=== PATIENT | female | born 1945 | race Caucasian/White ===

== ENCOUNTER → 2017-10-18 14:48 | Outpatient (CLI) | payer MEDICARE, OTHER, SELFPAY ==
[2017-10-18 16:58] LABS: Thyroid Stimulating Hormone 2.64 uIU/mL (0.47-4.68)
== END ==
PROVIDERS: PCP Family Medicine; Visit Provider Internal Medicine Cardiovascular Disease
DX: R00.2 Palpitations (principal); I48.0 Paroxysmal atrial fibrillation
CPT/HCPCS: 36415; 83735; 84443

== ENCOUNTER → 2017-10-25 10:49 | Outpatient (CLI) | payer MEDICARE, OTHER, SELFPAY ==
--- NOTE | 2017-10-25 | DI.MG.S_ITS ---
BILATERAL DIGITAL SCREENING MAMMOGRAM 3D/2D WITH CAD: 10/25/2017 CLINICAL: Routine screening. Comparison is made to exams dated: 04/18/2015 mammogram, 03/04/2011 mammogram, and 04/17/2009 mammogram - [facility]. There are scattered fibroglandular elements in both breasts. Current study was also evaluated with a Computer Aided Detection (CAD) system. No significant masses, calcifications, or other findings are seen in either breast. There has been no significant interval change. IMPRESSION: NEGATIVE There is no mammographic evidence of malignancy. A 1 year screening mammogram is recommended. This exam was interpreted at Station ID: [id number]. NOTE: For mammograms, a report in lay terms will be sent to the patient. Approximately 15% of breast malignancies will not be visualized mammographically. In the management of a palpable breast mass, a negative mammogram must not discourage biopsy of a clinically suspicious lesion. Electronically Signed By: Atilio navarrete/kamila:10/25/2017 12:09:41 letter sent: Normal Exam ACR BI-RADS Category 1: Negative [id number]
== END ==
PROVIDERS: PCP Family Medicine; Visit Provider Family Medicine
DX: Z12.31 Encounter for screening mammogram for malignant neoplasm of breast (principal)
CPT/HCPCS: 77063; 77067

== ENCOUNTER → 2018-01-09 14:27 | Outpatient (CLI) | payer MEDICARE, OTHER, SELFPAY | PROVIDERS: PCP Family Medicine; Visit Provider Family Medicine | DX: Z13.820 Encounter for screening for osteoporosis (principal); Z78.0 Asymptomatic menopausal state; R29.890 Loss of height; Z82.62 Family history of osteoporosis | CPT/HCPCS: 77080 ==

== ENCOUNTER → 2018-03-16 15:53 | Outpatient (CLI) | payer MEDICARE, OTHER, SELFPAY ==
--- NOTE | 2018-03-16 15:56 | DI.RAD.S_ITS ---
PROCEDURE: XR KNEE RT 3V INDICATIONS: Right knee pain and swelling. No known injury. TECHNIQUE: 3 views of the knee were acquired. COMPARISON: None. FINDINGS: Bones: No fractures or dislocations. No suspicious bony lesions. 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 Soft tissues: Moderate joint effusion. No suspicious soft tissue calcifications. IMPRESSION: 1. Mild to moderate joint disease. 2. Moderate knee joint effusion. Dictated by: Dereje King M.D. on 03/16/2018 at 16:57 Approved by: Dereje King M.D. on 03/16/2018 at 17:00
== END ==
PROVIDERS: PCP Family Medicine; Visit Provider Family Medicine
DX: M25.561 Pain in right knee (principal); M17.11 Unilateral primary osteoarthritis, right knee; M25.461 Effusion, right knee
CPT/HCPCS: 73562

== ENCOUNTER → 2018-09-04 14:19 | Outpatient (CLI) | payer MEDICARE, OTHER, SELFPAY ==
[2018-09-04 17:38] LABS: BUN Creatinine Ratio 16.3 (6-22); Blood Urea Nitrogen 13 mg/dL (7-17); Calcium 8.9 mg/dL (8.4-10.2); Carbon Dioxide 24 mmol/L (22-32); Chloride 98 mmol/L (98-107); Estimated Glomerular Filt Rate > 60.0 mL/min (>60); Glucose 84 mg/dL (80-110); HEMOLYSIS < 15 (0-50); Potassium 4.5 mmol/L (3.4-5.1); Sodium 134 mmol/L (137-145)
== END ==
PROVIDERS: Family Provider Family Medicine; PCP Family Medicine; Visit Provider Internal Medicine Cardiovascular Disease
DX: I48.0 Paroxysmal atrial fibrillation (principal)
CPT/HCPCS: 36415; 80048

== ENCOUNTER → 2018-09-21 11:17 | Outpatient (CLI) | payer MEDICARE, OTHER, SELFPAY ==
[2018-09-21 12:39] LABS: Blood Urea Nitrogen 16 mg/dL (7-17); Calcium 9.3 mg/dL (8.4-10.2); Carbon Dioxide 27 mmol/L (22-32); Chloride 95 mmol/L (98-107); Estimated Glomerular Filt Rate > 60.0 mL/min (>60); Glucose 95 mg/dL (80-110); HEMOLYSIS < 15 (0-50); Sodium 132 mmol/L (137-145)
== END ==
PROVIDERS: Family Provider Family Medicine; PCP Family Medicine; Visit Provider Internal Medicine Cardiovascular Disease
DX: I48.0 Paroxysmal atrial fibrillation (principal)
CPT/HCPCS: 36415; 80048

== ENCOUNTER → 2018-09-21 15:05 | Outpatient (CLI) | payer MEDICARE, OTHER, SELFPAY ==
--- NOTE | 2018-09-21 15:09 | DI.RAD.S_ITS ---
PROCEDURE: XR CHEST 2V INDICATIONS: wheezing TECHNIQUE: 2 views of the chest were acquired. COMPARISON: None. FINDINGS: Surgical changes and devices: None. Lungs and pleura: Low lung volumes with scattered subsegmental atelectasis/scarring. Suggestion of central airway thickening. No pleural effusions or pneumothorax. Mediastinum: Mediastinal contours are normal. Heart size is normal. Bones and chest wall: Lateral curvature of the spine and diffuse spondylosis. IMPRESSION: Low lung volumes and scattered atelectasis. No acute consolidation. Central airway thickening which raises the possibility of reactive airways disease, versus viral bronchitis Dictated by: Jaswinder Soares M.D. on 09/21/2018 at 16:10 Approved by: Jaswinder Soares M.D. on 09/21/2018 at 16:11
== END ==
PROVIDERS: Family Provider Family Medicine; PCP Family Medicine; Visit Provider Family Medicine
DX: R06.2 Wheezing (principal); I48.0 Paroxysmal atrial fibrillation
CPT/HCPCS: 36415; 71046; 80048

== ENCOUNTER → 2018-10-04 11:51 | Outpatient (CLI) | payer MEDICARE, OTHER, SELFPAY ==
[2018-10-04 12:36] LABS: BUN Creatinine Ratio 22.5 (6-22); Blood Urea Nitrogen 18 mg/dL (7-17); Calcium 9.5 mg/dL (8.4-10.2); Carbon Dioxide 28 mmol/L (22-32); Chloride 103 mmol/L (98-107); Estimated Glomerular Filt Rate > 60.0 mL/min (>60); Glucose 84 mg/dL (80-110); HEMOLYSIS < 15 (0-50); Potassium 4.5 mmol/L (3.4-5.1); Sodium 138 mmol/L (137-145)
[2018-10-05 15:47] LABS: Osmolality, Serum 292 mosm/kg (260-310)
== END ==
PROVIDERS: Family Provider Family Medicine; PCP Family Medicine; Visit Provider Internal Medicine Cardiovascular Disease
DX: E87.1 Hypo-osmolality and hyponatremia (principal)
CPT/HCPCS: 36415; 80048; 83930

== ENCOUNTER → 2018-11-01 11:50 | Outpatient (CLI) | payer MEDICARE, OTHER, SELFPAY ==
[2018-11-01 12:34] LABS: Bilirubin Urine UA NEGATIVE (NEGATIVE); Color Urine UA YELLOW; Glucose Urine UA NEGATIVE (Negative); Ketones Urine UA NEGATIVE (NEGATIVE); Leukocyte Esterase Urine UA 1+ (NEGATIVE); Nitrite Urine UA NEGATIVE (Negative); Occult Blood Urine UA 1+ (Negative); Protein Urine UA NEGATIVE (Negative); Urobilinogen Urine UA 0.2 E.U./dL (0.2); pH Urine UA 5.5 (4.5-8.0)
[2018-11-01 13:09] LABS: Appearance Urine UA Slightly Cloudy; RBC Urine 1-5/HPF (0-5/HPF)
[2018-11-01 13:10] LABS: Amorphous Sediment Urine 1+; Bacteria Urine Moderate (10-30); Culture Indicated Urine Specimen Cultured; Mucus Urine 1+ (Negative); Squamous Epithelial Cell Urine 1-5 /HPF (0-5/HPF); WBC Urine 30-100/HPF (0-5/HPF)
== END ==
PROVIDERS: Family Provider Family Medicine; PCP Family Medicine; Visit Provider Hospitalist
DX: R39.9 Unspecified symptoms and signs involving the genitourinary system (principal)
CPT/HCPCS: 81001; 87077; 87086; 87186

== ENCOUNTER 2018-12-10 17:28 | Emergency (ER) | payer MEDICARE, OTHER, SELFPAY ==
[2018-12-10 17:37] VITALS: BP 158/78; PULSE 40; RESP 20; TEMP 36.9; O2SAT 98
--- NOTE | 2018-12-10 17:37 | DI.CT.S_ITS ---
PROCEDURE: CT HEAD/BRAIN WO CON INDICATIONS: fall, hit head, + anticoags TECHNIQUE: Noncontrast 4.5 mm thick angled axial sections acquired from the foramen magnum to the vertex, with coronal and sagittal reformats. For radiation dose reduction, the following was used: automated exposure control, adjustment of mA and/or kV according to patient size. COMPARISON: None. FINDINGS: Image quality: Excellent. CSF spaces: Basal cisterns are patent. There is mild cerebral volume loss, with resultant ventricular prominence. There is a small left choroidal fissure cyst measuring up to 0.8 cm. Brain: No intracranial hemorrhage, mass, or mass effect. There are subcortical, periventricular and deep white matter hypodensities consistent with mild chronic small vessel ischemic changes. There is intracranial internal carotid artery atherosclerosis. Skull and face: Calvarium and visualized facial bones appear intact, without suspicious lesions. Sinuses: Visualized sinuses and mastoids are clear. IMPRESSION: 1. No acute intracranial abnormality. 2. Mild cerebral volume loss. 3. Small left choroidal fissure cyst. Dictated by: Nixon Rodriguez M.D. on 12/10/2018 at 18:05 Approved by: Nixon Rodriguez M.D. on 12/10/2018 at 18:07
--- NOTE | 2018-12-10 17:45 | ED.HEATRA ---
HPI - Head Injury General Chief complaint: Trauma Stated complaint: fall down stairs, hit head, and bruise left leg Time Seen by Provider: 12/10/18 17:32 Source: patient and family Mode of arrival: ambulatory Limitations: no limitations History of Present Illness HPI Narrative: Patient comes to the emergency department stating that she is here because her children wanted her to come in. She states that she was caring a vase down the stairs at [employer], when she tripped and fell and rolled down the stairs. She states that she did not lose consciousness but did hit her forehead and her bilateral lower legs while going down the stairs. She states that she was able to get up without difficulty and has not felt bad at all since the injury. He states the injury was approximately 7 hours ago. She states that she went home and took a nap, because she did not get much sleep last night and woke up feeling fine. However, she takes Eliquis, and her son and [id number], who is a nurse, were concerned that she should come in and get checked out. Patient denies any numbness or tingling. No weakness in any of her extremities. No visual changes. No headache. No dizziness. Patient states she has a bruise on each of her lower legs, but has been able to walk without difficulty or pain. She states she has a more minor bruise on her forehead. No other pain or injury anywhere else. Patient has not been ill recently. No other complaints at this time. Related Data Home Medications Medication Instructions Recorded Confirmed apixaban 5 mg tablet 5 mg PO BID #0 10/26/17 12/10/18 metoprolol succinate ER 25 mg 25 mg PO DAILY #0 10/26/17 12/10/18 tablet,extended release 24 hr flecainide 50 mg tablet 50 mg PO Q12H 06/15/18 12/10/18 triamcinolone acetonide 0.1 % 1 applictn TOP DAILY PRN 11/02/18 12/10/18 topical ointment Previous Rx's Medication Instructions Recorded escitalopram 20 mg tablet 20 mg PO QDAY #90 mg 08/08/18 albuterol sulfate HFA 90 2 puff INHALATION Q4H PRN #6.7 gram 09/21/18 mcg/actuation aerosol inhaler fluticasone propionate 50 1 spray NASAL DAILY #16 gram 11/02/18 mcg/actuation nasal spray,suspension Allergies Allergy/AdvReac Type Severity Reaction Status Date / Time procaine [From NOVOCAIN] Allergy Unknown HEART Unverified 11/02/18 10:30 RACING Review of Systems Constitutional Denies chills, Denies fever(s), Denies lethargy and Denies weakness Eyes Denies change in vision, Denies eye discharge, Denies irritation and Denies loss of vision ENT Ears, Nose, Mouth, and Throat: Denies change in voice, Denies neck pain and Denies sore throat Comments: Bruise forehead Cardiovascular Denies chest pain, Denies irregular heart rhythm, Denies lightheadedness, Denies palpitations, Denies dyspnea, Denies dyspnea on exertion and Denies orthopnea Respiratory Denies cough, Denies dyspnea, Denies dyspnea on exertion and Denies wheezing Gastrointestinal Gastrointestinal: Denies abdominal pain, Denies change in bowel habits, Denies diarrhea, Denies nausea and Denies vomiting Genitourinary Denies hematuria, Denies flank pain, Denies urinary incontinence and Denies urinary urgency Musculoskeletal Denies neck pain Comments: Bruise is bilateral lower extremity Integumentary/Breasts Denies pruritus, Denies erythema, Denies rash and Denies wounds Neurologic Denies confusion, Denies loss of vision and Denies weakness Psychiatric Denies anxiety, Denies confusion, Denies depression, Denies homicidal ideation and Denies suicidal ideation Endocrine Denies palpitations Hematologic/Lymphatic Denies easy bruising Allergic/Immunologic Denies wheezing [facility] Medical History Obstructive sleep apnea of adult (Chronic ~02/2018) Ankle pain (Chronic ~2015) Chronic back pain (Chronic) Depression (Chronic ~2010) Foot pain (Chronic ~2015) Ganglion cyst (Chronic) Hay fever (Chronic ~2015) Hearing deficit (Chronic) History of fibrocystic disease of breast (Chronic) Migraines (Chronic ~2004) Osteoporosis (Chronic ~2013) Tinnitus (Chronic ~1999) Vision disorder (Chronic) Chicken pox (Resolved ~1951) Measles (Resolved ~1949) Mumps (Resolved) Surgical History Anesthesia (Resolved) History of tonsillectomy Status post bunionectomy Family History Brother Age: 69 Heart disease Sleep apnea Father Heart disease Stroke Smoker Grandmother Heart disease Smoker Mother Heart disease Hypertension Smoker Grandfather Thrombosis Social History marital status: details: nathalia Bourgeois, lives in [place] household members: spouse lives independently: Yes caregiver/support person: No occupational status: other Smoking Status: Never smoker alcohol intake: current substance use type: does not use caffeine: No Family History Brother Age: 69 Heart disease Sleep apnea Father Heart disease Stroke Smoker Grandmother Heart disease Smoker Mother Heart disease Hypertension Smoker Grandfather Thrombosis Social History marital status: details: nathalia Bourgeois, lives in [place] household members: spouse lives independently: Yes caregiver/support person: No occupational status: other Smoking Status: Never smoker alcohol intake: current substance use type: does not use caffeine: No Exam Initial Vital Signs Initial Vital Signs: Vital Signs Temperature 98.4 F 12/10/18 17:37 Pulse Rate 40 L 12/10/18 17:37 Respiratory Rate 20 12/10/18 17:37 Blood Pressure 158/78 H 12/10/18 17:37 Pulse Oximetry 98 12/10/18 17:37 Const General: cooperative and well developed Nutritional Appearance: well nourished Orientation: alert, awake, oriented x3 and not confused [facility] Head: normocephalic and atraumatic Ears: external ears normal and TM's normal bilaterally Nose: external nose normal and No nasal discharge Face and sinus: sinuses nontender, face symmetric, no sinus tenderness and No dry mucous membranes Mouth: oral mucosae normal and moist mucous membranes Teeth and gingiva: dentition normal Throat: tonsils normal and uvula midline Eyes General: appearance normal, both eyes and all related structures Eyelids: eyelids normal Conjunctivae: conjunctivae normal Sclera: sclerae normal Pupils: PERRL EOM: EOM intact bilaterally Neck Neck: normal visual inspection, trachea midline, No lymphadenopathy, No midline deformity and No JVD Lymphatic: No lymphedema Chest Chest: normal inspection of the chest Resp Effort & Inspection: normal respiratory effort, able to speak in complete sentences, no respiratory distress and no use of accessory muscles Auscultation: clear to auscultation bilaterally, no rales, no rhonchi and no wheezes Cardio Rate: regular rate Rhythm: abnormal rhythm irregularly irregular Heart Sounds: no click, no gallops, no murmurs and no rubs Pulses: normal peripheral pulses Other: design inserter shows heart rate consistently in the 60s to 70s. GI Inspection: non-distended Palpation: soft, no hepatosplenomegaly, No guarding, No pulsatile mass and No tender Auscultation: normal bowel sounds Back/Spine/Pelvis Back: No CVA tenderness Cervical Spine: cervical ROM normal and No pain with cervical ROM Thoracic/Lumbar Spine: thoracic and lumbar spine normal to inspection Skin General: no rashes or lesions noted, No jaundice and No petechiae Neuro General: alert, oriented x3, gait normal and no focal motor deficits Speech: speech normal Extrem General: full ROM, no clubbing, cyanosis or edema, no pedal edema and no calf tenderness Psych Appearance: well kempt Mental Status: mental status grossly normal Attitude: cooperative Thought Content: normal and suicidality Judgment: judgment good Course Course Narrative: Patient was worked up with a head CT, which was found to be negative, and with an EKG, which showed sinus rhythm with first-degree AV block and frequent supraventricular premature complexes. The patient had had a brief period of low heart rate upon arrival in the emergency department, but was asymptomatic with this. Patient stated that she has had this happen from time to time since being put on metoprolol for her paroxysmal atrial fibrillation. Patient was not noted to have any further episodes of bradycardia, and I felt she was stable for discharge home. We have discussed the usual indications for return, as well as symptomatic management at home. Orders Ordered: ED Orders 12/10/18 17:37 CT head/brain wo con Stat EKG-12 Lead Stat Vital Signs - 8 hr 12/10/18 17:37 Temperature 98.4 F Pulse Rate 40 L Respiratory Rate 20 Blood Pressure 158/78 H Pulse Oximetry 98 MDM - Head Injury Medical Records Attestation: I reviewed the patient's medical records. Imaging Data CT scan - head: Radiologist's impression: PROCEDURE: CT HEAD/BRAIN WO CON INDICATIONS: fall, hit head, + anticoags TECHNIQUE: Noncontrast 4.5 mm thick angled axial sections acquired from the foramen magnum to the vertex, with coronal and sagittal reformats. For radiation dose reduction, the following was used: automated exposure control, adjustment of mA and/or kV according to patient size. COMPARISON: None. FINDINGS: Image quality: Excellent. CSF spaces: Basal cisterns are patent. There is mild cerebral volume loss, with resultant ventricular prominence. There is a small left choroidal fissure cyst measuring up to 0.8 cm. Brain: No intracranial hemorrhage, mass, or mass effect. There are subcortical, periventricular and deep white matter hypodensities consistent with mild chronic small vessel ischemic changes. There is intracranial internal carotid artery atherosclerosis. Skull and face: Calvarium and visualized facial bones appear intact, without suspicious lesions. Sinuses: Visualized sinuses and mastoids are clear. IMPRESSION: 1. No acute intracranial abnormality. 2. Mild cerebral volume loss. 3. Small left choroidal fissure cyst. Dictated by: Nixon Rodriguez M.D. on 12/10/2018 at 18:05 Approved by: Nixon Rodriguez M.D. on 12/10/2018 at 18:07 ECG Data Attestation: I personally reviewed and interpreted this ECG as follows: (See below) Interpretation: Twelve lead EKG performed December 02, 2018 at 5:39 p.m., as follows: Irregular ventricular rhythm with a rate of 63 beats per minute CA interval 224 millisecond QRS duration 89 millisecond QTC interval [address] T wave changes Ectopy noted Interpretation: Sinus rhythm with first-degree AV block with frequent supraventricular premature complexes; low QRS voltage in precordial leads; no signs of acute ischemia; abnormal EKG as interpreted by ED MD. Discharge Plan Departure Patient Disposition: Home Clinical Impression: CHI (closed head injury) Qualifiers: Encounter type: initial encounter Qualified Code(s): S09.90XA - Unspecified injury of head, initial encounter Contusion Qualifiers: Encounter type: initial encounter Contusion area: head Contusion of head detail: unspecified part of head Qualified Code(s): S00.93XA - Contusion of unspecified part of head, initial encounter Discharge Date/Time: 12/10/18 18:18 Interventions: ED Discharge Assessment Last Done: 12/10/18 18:17 Instructions: DI for Closed Head Injury Activity Restrictions/Additional Instructions: Your head CT looks good. There is no evidence of bleeding in your brain. The bruise and swelling on your lower leg will get better on its own over the next several days to a week. You may rapid and use ice and elevation to help decrease the size of the swelling. Please follow up with your primary doctor, as needed. Prescriptions: No Action albuterol sulfate 90 mcg/actuation HFA aerosol inhaler 2 puff INHALATION Q4H PRN (Reason: shortness of breath or wheezing) Qty: 6.7 RF: 1 Eliquis 5 mg Tablet 5 mg PO BID Qty: 0 RF: 0 metoprolol succinate 25 mg Tablet Extended Release 24 Hr 25 mg PO DAILY Qty: 0 RF: 0 escitalopram oxalate [Lexapro] 20 mg tablet 20 mg PO QDAY Qty: 90 RF: 2 triamcinolone acetonide 0.1 % ointment 1 applictn TOP DAILY PRN (Reason: Rash) RF: 0 fluticasone propionate [Flonase Allergy Relief] 50 mcg/actuation spray,suspension 1 spray NASAL DAILY Qty: 16 RF: 0 flecainide 50 mg tablet 50 mg PO Q12H RF: 0 Referrals: Letitia Funes DO [Primary Care Provider] -
--- NOTE | 2018-12-10 17:48 | ED_ITS ---
HPI - Head Injury General Chief complaint: Trauma Stated complaint: fall down stairs, hit head, and bruise left leg Time Seen by Provider: 12/10/18 17:32 Source: patient and family Mode of arrival: ambulatory Limitations: no limitations History of Present Illness HPI Narrative: Patient comes to the emergency department stating that she is here because her children wanted her to come in. She states that she was caring a vase down the stairs at [employer], when she tripped and fell and rolled down the stairs. She states that she did not lose consciousness but did hit her forehead and her bilateral lower legs while going down the stairs. She states that she was able to get up without difficulty and has not felt bad at all since the injury. He states the injury was approximately 7 hours ago. She states that s he went home and took a nap, because she did not get much sleep last night and woke up feeling fine. However, she takes Eliquis, and her son and [id number]-ozt, who is a nurse, were concerned that she should come in and get checked out. Patient denies any numbness or tingling. No weakness in any of her extremities. No visual changes. No headache. No dizziness. Patient states she has a bruise on each of her lower legs, but has been able to walk without difficulty or pain. She states she has a more minor bruise on her forehead. No other pain or injury anywhere else. Patient has not been ill recently. No other complaints at this time. Related Data Home Medications Medication Instructions Recorded Confirmed apixaban 5 mg tablet 5 mg PO BID #0 10/26/17 12/10/18 metoprolol succinate ER 25 mg 25 mg PO DAILY #0 10/26/17 12/10/18 tablet,extended release 24 hr flecainide 50 mg tablet 50 mg PO Q12H 06/15/18 12/10/18 triamcinolone acetonide 0.1 % 1 applictn TOP DAILY PRN 11/02/18 12/10/18 topical ointment Previous Rx's Medication Instructions Recorded escitalopram 20 mg tablet 20 mg PO QDAY #90 mg 08/08/18 albuterol sulfate HFA 90 2 puff INHALATION Q4H PRN #6.7 gram 09/21/18 mcg/actuation aerosol inhaler fluticasone propionate 50 1 spray NASAL DAILY #16 gram 11/02/18 mcg/actuation nasal spray,suspension Allergies Allergy/AdvReac Type Severity Reaction Status Date / Time procaine [From NOVOCAIN] Allergy Unknown HEART Unverified 11/02/18 10:30 RACING Review of Systems Constitutional Denies chills, Denies fever(s), Denies lethargy and Denies weakness Eyes Denies change in vision, Denies eye discharge, Denies irritation and Denies loss of vision ENT Ears, Nose, Mouth, and Throat: Denies change in voice, Denies neck pain and Denies sore throat Comments: Bruise forehead Cardiovascular Denies chest pain, Denies irregular heart rhythm, Denies lightheadedness, Denies palpitations, Denies dyspnea, Denies dyspnea on exertion and Denies orthopnea Respiratory Denies cough, Denies dyspnea, Denies dyspnea on exertion and Denies wheezing Gastrointestinal Gastrointestinal: Denies abdominal pain, Denies change in bowel habits, Denies diarrhea, Denies nausea and Denies vomiting Genitourinary Denies hematuria, Denies flank pain, Denies urinary incontinence and Denies urinary urgency Musculoskeletal Denies neck pain Comments: Bruise is bilateral lower extremity Integumentary/Breasts Denies pruritus, Denies erythema, Denies rash and Denies wounds Neurologic Denies confusion, Denies loss of vision and Denies weakness Psychiatric Denies anxiety, Denies confusion, Denies depression, Denies homicidal ideation and Denies suicidal ideation Endocrine Denies palpitations Hematologic/Lymphatic Denies easy bruising Allergic/Immunologic Denies wheezing [facility] Medical History Obstructive sleep apnea of adult (Chronic ~02/2018) Ankle pain (Chronic ~2015) Chronic back pain (Chronic) Depression (Chronic ~2010) Foot pain (Chronic ~2015) Ganglion cyst (Chronic) Hay fever (Chronic ~2015) Hearing deficit (Chronic) History of fibrocystic disease of breast (Chronic) Migraines (Chronic ~2004) Osteoporosis (Chronic ~2013) Tinnitus (Chronic ~1999) Vision disorder (Chronic) Chicken pox (Resolved ~1951) Measles (Resolved ~1949) Mumps (Resolved) Surgical History Anesthesia (Resolved) History of tonsillectomy Status post bunionectomy Family History Brother Age: 69 Heart disease Sleep apnea Father Heart disease Stroke Smoker Grandmother Heart disease Smoker Mother Heart disease Hypertension Smoker Grandfather Thrombosis Social History marital status: details: nathalia Bourgeois, lives in [place] household members: spouse lives independently: Yes caregiver/support person: No occupational status: other Smoking Status: Never smoker alcohol intake: current substance use type: does not use caffeine: No Family History Brother Age: 69 Heart disease Sleep apnea Father Heart disease Stroke Smoker Grandmother Heart disease Smoker Mother Heart disease Hypertension Smoker Grandfather Thrombosis Social History marital status: details: nathalia Bourgeois, lives in [place] household members: spouse lives independently: Yes caregiver/support person: No occupational status: other Smoking Status: Never smoker alcohol intake: current substance use type: does not use caffeine: No Exam Initial Vital Signs Initial Vital Signs: Vital Signs Temperature 98.4 F 12/10/18 17:37 Pulse Rate 40 L 12/10/18 17:37 Respiratory Rate 20 12/10/18 17:37 Blood Pressure 158/78 H 12/10/18 17:37 Pulse Oximetry 98 12/10/18 17:37 Const General: cooperative and well developed Nutritional Appearance: well nourished Orientation: alert, awake, oriented x3 and not confused [facility] Head: normocephalic and atraumatic Ears: external ears normal and TM's normal bilaterally Nose: external nose normal and No nasal discharge Face and sinus: sinuses nontender, face symmetric, no sinus tenderness and No dry mucous membranes Mouth: oral mucosae normal and moist mucous membranes Teeth and gingiva: dentition normal Throat: tonsils normal and uvula midline Eyes General: appearance normal, both eyes and all related structures Eyelids: eyelids normal Conjunctivae: conjunctivae normal Sclera: sclerae normal Pupils: PERRL EOM: EOM intact bilaterally Neck Neck: normal visual inspection, trachea midline, No lymphadenopathy, No midline deformity and No JVD Lymphatic: No lymphedema Chest Chest: normal inspection of the chest Resp Effort & Inspection: normal respiratory effort, able to speak in complete senten yamila, no respiratory distress and no use of accessory muscles Auscultation: clear to auscultation bilaterally, no rales, no rhonchi and no wheezes Cardio Rate: regular rate Rhythm: abnormal rhythm irregularly irregular Heart Sounds: no click, no gallops, no murmurs and no rubs Pulses: normal peripheral pulses Other: networking engineer shows heart rate consistently in the 60s to 70s. GI Inspection: non-distended Palpation: soft, no hepatosplenomegaly, No guarding, No pulsatile mass and No tender Auscultation: normal bowel sounds Back/Spine/Pelvis Back: No CVA tenderness Cervical Spine: cervical ROM normal and No pain with cervical ROM Thoracic/Lumbar Spine: thoracic and lumbar spine normal to inspection Skin General: no rashes or lesions noted, No jaundice and No petechiae Neuro General: alert, oriented x3, gait normal and no focal motor deficits Speech: speech normal Extrem General: full ROM, no clubbing, cyanosis or edema, no pedal edema and no calf tenderness Psych Appearance: well kempt Mental Status: mental status grossly normal Attitude: cooperative Thought Content: normal and suicidality Judgment: judgment good Course Course Narrative: Patient was worked up with a head CT, which was found to be negative, and with an EKG, which showed sinus rhythm with first-degree AV block and frequent supraventricular premature complexes. The patient had had a brief period of low heart rate upon arrival in the emergency department, but was asymptomatic with this. Patient stated that she has had this happen from time to time since being put on metoprolol for her paroxysmal atrial fibrillation. Patient was not noted to have any further episodes of bradycardia, and I felt she was stable for discharge home. We have discussed the usual indications for return, as well as symptomatic management at home. Orders Ordered: ED Orders 12/10/18 17:37 CT head/brain wo con Stat EKG-12 Lead Stat Vital Signs - 8 hr 12/10/18 17:37 Temperature 98.4 F Pulse Rate 40 L Respiratory Rate 20 Blood Pressure 158/78 H Pulse Oximetry 98 MDM - Head Injury Medical Records Attestation: I reviewed the patient's medical records. Imaging Data CT scan - head: Radiologist's impression: PROCEDURE: CT HEAD/BRAIN WO CON INDICATIONS: fall, hit head, + anticoags TECHNIQUE: Noncontrast 4.5 mm thick angled axial sections acquired from the foramen magnum to the vertex, with coronal and sagittal reformats. For radiation dose reduction, the following was used: automated exposure control, adjustment of mA and/or kV according to patient size. COMPARISON: None. FINDINGS: Image quality: Excellent. CSF spaces: Basal cisterns are patent. There is mild cerebral volume loss, with resultant ventricular prominence. There is a small left choroidal fissure cyst measuring up to 0.8 cm. Brain: No intracranial hemorrhage, mass, or mass effect. There are subcortical, periventricular and deep white matter hypodensities consistent with mild chronic small vessel ischemic changes. There is intracranial internal carotid artery atherosclerosis. Skull and face: Calvarium and visualized facial bones appear intact, without suspicious lesions. Sinuses: Visualized sinuses and mastoids are clear. IMPRESSION: 1. No acute intracranial abnormality. 2. Mild cerebral volume loss. 3. Small left choroidal fissure cyst. Dictated by: Nixon Rodriguez M.D. on 12/10/2018 at 18:05 Approved by: Nixon Rodriguez M.D. on 12/10/2018 at 18:07 ECG Data Attestation: I personally reviewed and interpreted this ECG as follows: (See below) Interpretation: Twelve lead EKG performed December 02, 2018 at 5:39 p.m., as wes arzate: Irregular ventricular rhythm with a rate of 63 beats per minute AL interval 224 millisecond QRS duration 89 millisecond QTC interval [address] T wave changes Ectopy noted Interpretation: Sinus rhythm with first-degree AV block with frequent supraventricular premature complexes; low QRS voltage in precordial leads; no signs of acute ischemia; abnormal EKG as interpreted by ED MD. Discharge Plan Departure Patient Disposition: Home Clinical Impression: CHI (closed head injury) Qualifiers: Encounter type: initial encounter Qualified Code(s): S09.90XA - Unspecified injury of head, initial encounter Contusion Qualifiers: Encounter type: initial encounter Contusion area: head Contusion of head detail: unspecified part of head Qualified Code(s): S00.93XA - Contusion of unspecified part of head, initial encounter Discharge Date/Time: 12/10/18 18:18 Interventions: ED Discharge Assessment Last Done: 12/10/18 18:17 Instructions: DI for Closed Head Injury Activity Restrictions/Additional Instructions: Your head CT looks good. There is no evidence of bleeding in your brain. The bruise and swelling on your lower leg will get better on its own over the next several days to a week. You may rapid and use ice and elevation to help decrease the size of the swelling. Please follow up with your primary doctor, as needed. Prescriptions: No Action albuterol sulfate 90 mcg/actuation HFA aerosol inhaler 2 puff INHALATION Q4H PRN (Reason: shortness of breath or wheezing) Qty: 6.7 RF: 1 Eliquis 5 mg Tablet 5 mg PO BID Qty: 0 RF: 0 metoprolol succinate 25 mg Tablet Extended Release 24 Hr 25 mg PO DAILY Qty: 0 RF: 0 escitalopram oxalate [Lexapro] 20 mg tablet 20 mg PO QDAY Qty: 90 RF: 2 triamcinolone acetonide 0.1 % ointment 1 applictn TOP DAILY PRN (Reason: Rash) RF: 0 fluticasone propionate [Flonase Allergy Relief] 50 mcg/actuation spray,suspension 1 spray NASAL DAILY Qty: 16 RF: 0 flecainide 50 mg tablet 50 mg PO Q12H RF: 0 Referrals: Letitia Funes DO [Primary Care Provider] -
[2018-12-10 18:16] VITALS: BP 113/58; PULSE 78; RESP 16; O2SAT 98
== END 2018-12-10 18:18 | disposition home or self-care (01) ==
PROVIDERS: Emergency Provider Emergency Medicine; PCP Family Medicine
DX: S09.90XA Unspecified injury of head, initial encounter (principal); S00.93XA Contusion of unspecified part of head, initial encounter; W10.8XXA Fall (on) (from) other stairs and steps, initial encounter
CPT/HCPCS: 70450; 93005; 99282; 99284

== ENCOUNTER 2018-12-16 14:37 | Emergency (ER) | payer MEDICARE, OTHER, SELFPAY ==
[2018-12-16 14:40] VITALS: BP 149/75; PULSE 71; RESP 18; TEMP 36.8; O2SAT 98
[2018-12-16 15:51] LABS: Add Manual Diff / Slide Review NO; Basophils Absolute Auto 0 /uL (0-100); Basophils Percent Auto 0.4 % (0-2); Eosinophils Absolute Auto 300 /uL (0-450); Eosinophils Percent Auto 3.5 % (2-4); Hematocrit 42.1 % (36-46); Hemoglobin 14.1 g/dL (12.0-16.0); Lymphocytes Absolute Auto 700 /uL (1100-4500); Lymphocytes Percent Auto 10.2 % (25-40); Mean Corpuscular HGB Conc 33.4 % (30-36); Mean Corpuscular Hemoglobin 31.1 PG (26-34); Mean Corpuscular Volume 92.9 fL (80-100); Monocytes Absolute Auto 600 /uL (0-900); Monocytes Percent Auto 8.7 % (3-14); Neutrophils Absolute Auto 5600 /uL (1500-7000); Neutrophils Percent Auto 77.2 % (50-75); Platelet Count 207 X10^3/uL (150-400); Red Blood Cell Count 4.53 X10^6/uL (4.0-5.2); Red Cell Distribution Width 13.4 % (11.6-14.8); White Blood Cell Count 7.2 X10^3/uL (4.5-11.0)
[2018-12-16 16:08] LABS: Alanine Aminotransferase 16 IU/L (9-52); Albumin 3.9 g/dL (3.5-5.0); Albumin Globulin Ratio 1.4 (1.0-2.8); Alkaline Phosphatase 59 U/L (38-126); Aspartate Aminotransferase 24 IU/L (14-36); BUN Creatinine Ratio 23.8 (6-22); Bilirubin Total 0.5 mg/dL (0.2-1.3); Blood Urea Nitrogen 19 mg/dL (7-17); Carbon Dioxide 27 mmol/L (22-32); Chloride 102 mmol/L (98-107); Estimated Glomerular Filt Rate > 60.0 mL/min (>60); Globulin 2.8 g/dL (1.7-4.1); Glucose 94 mg/dL (80-110); HEMOLYSIS 16 (0-50); Lactate (Lactic Acid) 1.1 mmol/L (0.7-2.1); Potassium 4.5 mmol/L (3.4-5.1); Sodium 134 mmol/L (137-145); Total Protein 6.7 g/dL (6.3-8.2)
[2018-12-16 16:48] VITALS: BP 129/82; PULSE 74; RESP 18; O2SAT 94
--- NOTE | 2018-12-16 17:41 | ED_ITS ---
HPI - Skin/Abscess/Foreign Bdy <KASSANDRA Obrien - Last Filed: 12/16/18 18:59> General Chief complaint: Skin/Abscess/Foreign Body Stated complaint: fell 6 days ago, hurt lft leg, getting worse Time Seen by Provider: 12/16/18 14:54 Source: patient Mode of arrival: ambulatory Limitations: no limitations History of Present Illness HPI narrative: The patient is a 73-year-old female nonsmoker with a chief complaint of a wound on her left lower leg. She was evaluated at the emergency department for a fall 6 days ago, and then seen by her PCP yesterday. She was started on Bactrim for possible cellulitis. She has had 3 doses. She denies any fevers nausea vomiting or diarrhea. She presents because there is increased size in the blister on her left lower leg and concern for increased redness. She states that there is some pain at the wound, which is worse when she walks, but then improved. She states she has been resting her leg and elevating. Related Data Home Medications Medication Instructions Recorded Confirmed apixaban 5 mg tablet 5 mg PO BID #0 10/26/17 12/22/18 metoprolol succinate ER 25 mg 25 mg PO DAILY #0 10/26/17 12/22/18 tablet,extended release 24 hr flecainide 50 mg tablet 50 mg PO Q12H 06/15/18 12/22/18 triamcinolone acetonide 0.1 % 1 applictn TOP DAILY PRN 11/02/18 12/22/18 topical ointment Previous Rx's Medication Instructions Recorded escitalopram 20 mg tablet 20 mg PO QDAY #90 mg 08/08/18 albuterol sulfate HFA 90 2 puff INHALATION Q4H PRN #6.7 gram 09/21/18 mcg/actuation aerosol inhaler doxycycline monohydrate 100 mg 100 mg PO BID #10 tab 12/22/18 tablet Allergies Allergy/AdvReac Type Severity Reaction Status Date / Time procaine [From NOVOCAIN] Allergy Unknown HEART Unverified 12/22/18 11:56 RACING Review of Systems <KASSANDRA Obrien - Last Filed: 12/16/18 18:59> Review of Systems GENERAL: Denies chills, fatigue, malaise, fever, sweats. HEENT: Denies sinus pain, ear pain, sore throat, difficulty swallowing, dizziness. RESPIRATORY: Denies dyspnea, cough, wheezing, hemoptysis, sputum. CARDIOVASCULAR: Denies chest pain, palpitations, orthopnea, edema, GASTROINTESTINAL: Denies nausea, vomiting, abdominal pain, diarrhea, constipation, melena. : Denies dysuria, frequency, incontinence, hematuria, urinary retention. MUSCULOSKELETAL: See HPI SKIN: See HPI NEUROLOGIC: Denies weakness, headache, numbness, change in speech, confusion, seizures, incoordination. PSYCHIATRIC: No concerning psychosocial issues. 12 point review of systems is negative except for those stated above PFSH <KASSANDRA Obrien - Last Filed: 12/16/18 18:59> Medical History Obstructive sleep apnea of adult (Chronic ~02/2018) Ankle pain (Chronic ~2015) Chronic back pain (Chronic) Depression (Chronic ~2010) Foot pain (Chronic ~2015) Ganglion cyst (Chronic) Hay fever (Chronic ~2015) Hearing deficit (Chronic) History of fibrocystic disease of breast (Chronic) Migraines (Chronic ~2004) Osteoporosis (Chronic ~2013) Tinnitus (Chronic ~1999) Vision disorder (Chronic) Chicken pox (Resolved ~1951) Measles (Resolved ~1949) Mumps (Resolved) Surgical History Anesthesia (Resolved) History of tonsillectomy Status post bunionectomy Family History Brother Age: 69 Heart disease Sleep apnea Father Heart disease Stroke Smoker Grandmother Heart disease Smoker Mother Heart disease Hypertension Smoker Grandfather Thrombosis Social History marital status: details: to Bk, lives in [place] household members: spouse lives independently: Yes caregiver/support person: No occupational status: other Smoking Status: Never smoker alcohol intake: current substance use type: does not use caffeine: No Family History Brother Age: 69 Heart disease Sleep apnea Father Heart disease Stroke Smoker Grandmother Heart disease Smoker Mother Heart disease Hypertension Smoker Grandfather Thrombosis Social History marital status: details: to Bk, lives in [place] household members: spouse lives independently: Yes caregiver/support person: No occupational status: other Smoking Status: Never smoker alcohol intake: current substance use type: does not use caffeine: No Exam <KASSANDRA Obrien - Last Filed: 12/16/18 18:59> Narrative Exam Narrative: GENERAL: Elderly female no acute distress HEAD: Atraumatic. Normocephalic. No temporal or scalp tenderness. EYES: Pupils equal round and reactive. Extraocular motions intact. No scleral icterus. No injection or drainage. ENT: Nose without bleeding, purulent drainage or septal hematoma. Throat without erythema, tonsillar hypertrophy or exudate. Uvula midline. Airway patent. NECK: Trachea midline. No JVD or lymphadenopathy. Supple, nontender, no meningeal signs. CARDIOVASCULAR: Regular rate and rhythm RESPIRATORY: No cough. No increased respiratory effort. No accessory muscle use. EXTREMITIES: Noted in skin exam. BACK: Nontender without deformity or crepitance. No flank tenderness. NEURO: AOx3. SKIN: Left lateral leg has 6 x 6 area of ecchymosis and surrounding erythema with 2 x 1 central blister. Also noted to have purple yellow and brown ecchymosis over her left foot, who around lateral ankle and medial ankle. Patient is able to ambulate well. He full range of motion noted right ankle. Positive pedal pulses. No obvious drainage. Initial Vital Signs Initial Vital Signs: Vital Signs Temperature 98.2 F 12/16/18 14:40 Pulse Rate 71 12/16/18 14:40 Respiratory Rate 18 12/16/18 14:40 Blood Pressure 149/75 H 12/16/18 14:40 Pulse Oximetry 98 12/16/18 14:40 <Edna Oshea DO - Last Filed: 12/24/18 20:31> Initial Vital Signs Initial Vital Signs: Vital Signs Temperature 98.2 F 12/16/18 14:40 Pulse Rate 71 12/16/18 14:40 Respiratory Rate 18 12/16/18 14:40 Blood Pressure 149/75 H 12/16/18 14:40 Pulse Oximetry 98 12/16/18 14:40 Course <LUCÍA Obrien-BC - Last Filed: 12/16/18 18:59> Orders Ordered: ED Orders 12/16/18 15:43 Complete Blood Count AUTO DIFF Stat Comprehensive Metabolic Panel Stat Lactate (Lactic Acid) Stat Vital Signs - 8 hr 12/16/18 14:40 12/16/18 16:48 Temperature 98.2 F Pulse Rate 71 74 Respiratory Rate 18 18 Blood Pressure 149/75 H 129/82 Pulse Oximetry 98 94 <Edna Oshea DO - Last Filed: 12/24/18 20:31> Orders Ordered: ED Orders 12/16/18 15:43 Complete Blood Count AUTO DIFF Stat Comprehensive Metabolic Panel Stat Lactate (Lactic Acid) Stat Vital Signs - 8 hr 12/16/18 14:40 12/16/18 16:48 Temperature 98.2 F Pulse Rate 71 74 Respiratory Rate 18 18 Blood Pressure 149/75 H 129/82 Pulse Oximetry 98 94 MDM - Skin/Abscess/Foreign Bdy <AYLIN Obrien - Last Filed: 12/16/18 18:59> Lab Data Result diagrams: 12/16/18 15:43 12/16/18 15:43 Lab Results 12/16/18 12/16/18 12/16/18 Range/Units 15:43 15:43 15:43 WBC 7.2 (4.5-11.0) X10^3/uL RBC 4.53 (4.0-5.2) X10^6/uL Hgb 14.1 (12.0-16.0) g/dL Hct 42.1 (36-46) % MCV 92.9 (80-100) fL MCH 31.1 (26-34) PG MCHC 33.4 (30-36) % RDW 13.4 (11.6-14.8) % Plt Count 207 (150-400) X10^3/uL Neut % (Auto) 77.2 H (50-75) % Lymph % (Auto) 10.2 L (25-40) % Appling % (Auto) 8.7 (3-14) % Eos % (Auto) 3.5 (2-4) % Baso % (Auto) 0.4 (0-2) % Neut # (Auto) 5600 (7117-7382) /uL Lymph # (Auto) 700 L (0035-8299) /uL Appling # (Auto) 600 (0-900) /uL Eos # (Auto) 300 (0-450) /uL Baso # (Auto) 0 (0-100) /uL Sodium 134 L (137-145) mmol/L Potassium 4.5 (3.4-5.1) mmol/L Chloride 102 (98-107) mmol/L Carbon Dioxide 27 (22-32) mmol/L BUN 19 H (7-17) mg/dL Creatinine 0.80 (0.52-1.04) mg/dL Estimated GFR > 60.0 (>60) mL/min BUN/Creatinine Ratio 23.8 H (6-22) Glucose 94 (80-110) mg/dL Lactate 1.1 (0.7-2.1) mmol/L Calcium 9.0 (8.4-10.2) mg/dL Total Bilirubin 0.5 (0.2-1.3) mg/dL AST 24 (14-36) IU/L ALT 16 (9-52) IU/L Alkaline Phosphatase 59 (38-126) U/L Total Protein 6.7 (6.3-8.2) g/dL Albumin 3.9 (3.5-5.0) g/dL Globulin 2.8 (1.7-4.1) g/dL Albumin/Globulin Ratio 1.4 (1.0-2.8) MDM Narrative Medical decision making narrative: The patient is a 73-year-old female who presents with a chief complaint of a wound. She has only had 3 doses of Bactrim. Her exam seems to correlate with documentation yesterday, and she does not have any signs of systemic infection on exam. We did do lab work, and she has a normal WBC and normal lactate. I discussed this case with Dr Oshea and she suggested keeping a Bactrim at this point she has not even had it for 48 hours. Discussed at length follow up with PCP. Discussed come back to ER in the meantime for any acute concerns such as fever, and we keep down fluids, extending redness etc. No questions or concerns upon discharge. <Edna Oshea, - Last Filed: 12/24/18 20:31> Lab Data Lab Results 12/16/18 12/16/18 12/16/18 Range/Units 15:43 15:43 15:43 WBC 7.2 (4.5-11.0) X10^3/uL RBC 4.53 (4.0-5.2) X10^6/uL Hgb 14.1 (12.0-16.0) g/dL Hct 42.1 (36-46) % MCV 92.9 (80-100) fL MCH 31.1 (26-34) PG MCHC 33.4 (30-36) % RDW 13.4 (11.6-14.8) % Plt Count 207 (150-400) X10^3/uL Neut % (Auto) 77.2 H (50-75) % Lymph % (Auto) 10.2 L (25-40) % Appling % (Auto) 8.7 (3-14) % Eos % (Auto) 3.5 (2-4) % Baso % (Auto) 0.4 (0-2) % Neut # (Auto) 5600 (4960-0757) /uL Lymph # (Auto) 700 L (0531-7533) /uL Appling # (Auto) 600 (0-900) /uL Eos # (Auto) 300 (0-450) /uL Baso # (Auto) 0 (0-100) /uL Sodium 134 L (137-145) mmol/L Potassium 4.5 (3.4-5.1) mmol/L Chloride 102 (98-107) mmol/L Carbon Dioxide 27 (22-32) mmol/L BUN 19 H (7-17) mg/dL Creatinine 0.80 (0.52-1.04) mg/dL Estimated GFR > 60.0 (>60) mL/min BUN/Creatinine Ratio 23.8 H (6-22) Glucose 94 (80-110) mg/dL Lactate 1.1 (0.7-2.1) mmol/L Calcium 9.0 (8.4-10.2) mg/dL Total Bilirubin 0.5 (0.2-1.3) mg/dL AST 24 (14-36) IU/L ALT 16 (9-52) IU/L Alkaline Phosphatase 59 (38-126) U/L Total Protein 6.7 (6.3-8.2) g/dL Albumin 3.9 (3.5-5.0) g/dL Globulin 2.8 (1.7-4.1) g/dL Albumin/Globulin Ratio 1.4 (1.0-2.8) Discharge Plan Departure Patient Disposition: Home Clinical Impression: Encounter for wound re-check Discharge Date/Time: 12/16/18 16:52 Interventions: ED Discharge Assessment Last Done: 12/16/18 16:48 Instructions: DI for Cellulitis -- Adult, Minor Wounds (Alternative Therapy), How To Perform RICE (Rest, Ice, Compress, Elevate) Activity Restrictions/Additional Instructions: Your lab work is very reassuring. Please continue to take the Bactrim, please follow up with PCP in the next few days. Please monitor for spreading redness, fever, vomiting or signs of systemic illness. Please come back to the emergency department for any acute concerns. Please rest. Please do not push herself. Please elevate your leg. Prescriptions: No Action albuterol sulfate 90 mcg/actuation HFA aerosol inhaler 2 puff INHALATION Q4H PRN (Reason: shortness of breath or wheezing) Qty: 6.7 RF: 1 Eliquis 5 mg Tablet 5 mg PO BID Qty: 0 RF: 0 metoprolol succinate 25 mg Tablet Extended Release 24 Hr 25 mg PO DAILY Qty: 0 RF: 0 escitalopram oxalate [Lexapro] 20 mg tablet 20 mg PO QDAY Qty: 90 RF: 2 doxycycline monohydrate 100 mg tablet 100 mg PO BID Qty: 10 RF: 0 triamcinolone acetonide 0.1 % ointment 1 applictn TOP DAILY PRN (Reason: Rash) RF: 0 flecainide 50 mg tablet 50 mg PO Q12H RF: 0 Referrals: Letitia Funes DO [Primary Care Provider] - <Edna Oshea DO - Last Filed: 12/24/18 20:31> Cosign ED Attending Fransiscaature Attestation: I was immediately available in the department for consultation. Documentation has been reviewed. I agree with assessment and plan.
== END 2018-12-16 16:52 | disposition home or self-care (01) ==
PROVIDERS: Emergency Provider Nurse Practitioner Family; PCP Family Medicine
DX: S80.822A Blister (nonthermal), left lower leg, initial encounter (principal)
CPT/HCPCS: 36415; 80053; 83605; 85025; 99282; 99283

== ENCOUNTER → 2019-04-25 11:16 | Outpatient (CLI) | payer MEDICARE, OTHER, SELFPAY ==
[2019-04-25 12:11] LABS: BUN Creatinine Ratio 18.8 (6-22); Blood Urea Nitrogen 15 mg/dL (7-17); Calcium 9.8 mg/dL (8.4-10.2); Carbon Dioxide 30 mmol/L (22-32); Chloride 102 mmol/L (98-107); Estimated Glomerular Filt Rate > 60.0 mL/min (>60); Glucose 97 mg/dL (80-110); HEMOLYSIS < 15 (0-50); Potassium 4.8 mmol/L (3.4-5.1); Sodium 140 mmol/L (137-145)
== END ==
PROVIDERS: PCP Family Medicine; Visit Provider Internal Medicine Cardiovascular Disease
DX: R00.2 Palpitations (principal); I48.0 Paroxysmal atrial fibrillation; I47.1 Supraventricular tachycardia; I48.92 Unspecified atrial flutter; G47.33 Obstructive sleep apnea (adult) (pediatric)
CPT/HCPCS: 36415; 80048

== ENCOUNTER → 2019-05-21 14:13 | Outpatient (CLI) | payer MEDICARE, OTHER, SELFPAY ==
--- NOTE | 2019-05-21 14:15 | DI.RAD.S_ITS ---
PROCEDURE: XR CHEST 2V INDICATIONS: cough TECHNIQUE: 2 views of the chest were acquired. COMPARISON: [facility], CR, XR CHEST 2V, 09/21/2018, 15:13. FINDINGS: Surgical changes and devices: None. Lungs and pleura: Lungs are clear. No pleural effusions or pneumothorax. Mediastinum: Mediastinal contours are normal. Heart size is normal. Bones and chest wall: No suspicious bony abnormalities. Soft tissues appear unremarkable. IMPRESSION: No consolidation identified. Dictated by: Lambert Bolton M.D. on 05/21/2019 at 14:28 Approved by: Lambert Bolton M.D. on 05/21/2019 at 14:32
[2019-05-21 16:11] LABS: Thyroid Stimulating Hormone 1.42 uIU/mL (0.47-4.68)
== END ==
PROVIDERS: PCP Family Medicine; Visit Provider Physician Assistant
DX: Z51.81 Encounter for therapeutic drug level monitoring (principal); R05 Cough; I48.4 Atypical atrial flutter; G47.33 Obstructive sleep apnea (adult) (pediatric); Z79.899 Other long term (current) drug therapy
CPT/HCPCS: 36415; 71046; 83735; 84443

== ENCOUNTER → 2019-10-31 08:32 | Outpatient (CLI) | payer MEDICARE, OTHER, SELFPAY ==
[2019-11-01 08:40] LABS: COVID19 Sendout Not Detected (Not Detect)
== END ==
PROVIDERS: PCP Family Medicine; Visit Provider Registered Nurse
DX: Z01.812 Encounter for preprocedural laboratory examination (principal)
CPT/HCPCS: 87635

== ENCOUNTER → 2020-01-30 14:47 | Outpatient (CLI) | payer MEDICARE, OTHER, SELFPAY ==
[2020-01-30 16:05] LABS: Appearance Urine UA CLEAR; Bilirubin Urine UA NEGATIVE (NEGATIVE); Color Urine UA YELLOW; Glucose Urine UA NEGATIVE (Negative); Ketones Urine UA NEGATIVE (NEGATIVE); Leukocyte Esterase Urine UA 1+ (NEGATIVE); Nitrite Urine UA NEGATIVE (Negative); Occult Blood Urine UA 1+ (Negative); Protein Urine UA NEGATIVE (Negative); Specific Gravity Urine UA <=1.005 (1.000-1.035); Urobilinogen Urine UA 0.2 E.U./dL (0.2)
[2020-01-30 16:11] LABS: Bacteria Urine Moderate (10-30); Culture Indicated Urine Specimen Cultured; RBC Urine 1-5/HPF (0-5/HPF); WBC Urine 10-30/HPF (0-5/HPF)
== END ==
PROVIDERS: PCP Family Medicine; Referring Provider Family Medicine; Visit Provider Family Medicine
DX: R30.0 Dysuria (principal); R35.0 Frequency of micturition; R39.15 Urgency of urination
CPT/HCPCS: 81001; 87077; 87086; 87186

== ENCOUNTER → 2020-02-04 14:28 | Outpatient (CLI) | payer MEDICARE, OTHER, SELFPAY ==
[2020-02-04 16:14] LABS: BUN Creatinine Ratio 17.4 (6-22); Blood Urea Nitrogen 15 mg/dL (7-17); Calcium 9.1 mg/dL (8.4-10.2); Carbon Dioxide 25 mmol/L (22-32); Chloride 97 mmol/L (98-107); Estimated Glomerular Filt Rate > 60.0 mL/min (>60); Glucose 107 mg/dL (80-110); HEMOLYSIS < 15 (0-50); Potassium 4.7 mmol/L (3.4-5.1); Sodium 130 mmol/L (137-145)
[2020-02-04 16:41] LABS: Thyroid Stimulating Hormone 2.13 uIU/mL (0.47-4.68)
== END ==
PROVIDERS: PCP Family Medicine; Referring Provider Internal Medicine Cardiovascular Disease; Visit Provider Internal Medicine Cardiovascular Disease
DX: I48.0 Paroxysmal atrial fibrillation (principal); Z51.81 Encounter for therapeutic drug level monitoring; Z79.899 Other long term (current) drug therapy; G47.33 Obstructive sleep apnea (adult) (pediatric); E87.1 Hypo-osmolality and hyponatremia
CPT/HCPCS: 36415; 80048; 83735; 84443

== ENCOUNTER → 2020-02-05 11:22 | Outpatient (CLI) | payer MEDICARE, OTHER, SELFPAY | PROVIDERS: PCP Family Medicine; Visit Provider Family Medicine | DX: N39.0 Urinary tract infection, site not specified (principal) | CPT/HCPCS: 87086 ==

== ENCOUNTER → 2020-02-07 12:05 | Outpatient (CLI) | payer MEDICARE, OTHER, SELFPAY ==
[2020-02-07 12:58] LABS: BUN Creatinine Ratio 23.3 (6-22); Blood Urea Nitrogen 17 mg/dL (7-17); Calcium 9.6 mg/dL (8.4-10.2); Carbon Dioxide 27 mmol/L (22-32); Chloride 101 mmol/L (98-107); Estimated Glomerular Filt Rate > 60.0 mL/min (>60); Glucose 94 mg/dL (80-110); HEMOLYSIS < 15 (0-50); Potassium 4.9 mmol/L (3.4-5.1); Sodium 135 mmol/L (137-145)
[2020-02-07 15:15] LABS: Sodium Urine Random 32 mmol/L (30-90)
[2020-02-08 16:08] LABS: Osmolality Urine 603 mOsmol/kg (.); Osmolality, Serum 282 mOsmol/kg (280-301)
== END ==
PROVIDERS: PCP Family Medicine; Referring Provider Internal Medicine Cardiovascular Disease; Visit Provider Internal Medicine Cardiovascular Disease
DX: E87.1 Hypo-osmolality and hyponatremia (principal)
CPT/HCPCS: 36415; 80048; 83930; 83935; 84300

== ENCOUNTER → 2020-02-13 12:12 | Outpatient (CLI) | payer MEDICARE, OTHER, SELFPAY ==
--- NOTE | 2020-02-13 | DI.US.S_ITS ---
PROCEDURE: US PERIPH VENOUS LOW EXTREM LT INDICATIONS: EDEMA TECHNIQUE: Real-time imaging, as well as color and pulse Doppler interrogation, were performed of the lower extremity deep veins from the inguinal ligament to the popliteal fossa. COMPARISON: None. FINDINGS: The common femoral, femoral and popliteal veins are normally compressible, and free of intraluminal thrombus. Color and pulse Doppler demonstrate normal phasic intraluminal flow. There is normal augmentation response to distal compression maneuver. IMPRESSION: Negative for deep venous thrombosis. Dictated by: Herrera Willis M.D. on 02/13/2020 at 12:43 Approved by: Hererra Willis M.D. on 02/13/2020 at 12:43
== END ==
PROVIDERS: PCP Family Medicine; Referring Provider Family Medicine; Visit Provider Internal Medicine Cardiovascular Disease
DX: R60.0 Localized edema (principal)
CPT/HCPCS: 93971

== ENCOUNTER → 2020-02-26 09:34 | Outpatient (CLI) | payer MEDICARE, OTHER, SELFPAY ==
[2020-02-27 00:50] LABS: COVID19 Sendout Not Detected (Not Detect)
== END ==
PROVIDERS: PCP Family Medicine; Visit Provider Physician Assistant
DX: Z11.59 Encounter for screening for other viral diseases (principal)
CPT/HCPCS: 87635

== ENCOUNTER → 2020-03-26 12:29 | Outpatient (CLI) | payer MEDICARE, OTHER, SELFPAY | PROVIDERS: PCP Family Medicine; Visit Provider Family Medicine | DX: N39.0 Urinary tract infection, site not specified (principal) | CPT/HCPCS: 87077; 87086; 87186 ==

== ENCOUNTER → 2020-04-02 15:08 | Outpatient (CLI) | payer MEDICARE, OTHER, SELFPAY ==
[2020-04-02 15:37] LABS: Bacteria Urine None Seen
[2020-04-02 16:13] LABS: Appearance Urine UA CLEAR; Bilirubin Urine UA NEGATIVE (NEGATIVE); Color Urine UA YELLOW; Glucose Urine UA NEGATIVE (Negative); Ketones Urine UA NEGATIVE (NEGATIVE); Leukocyte Esterase Urine UA 1+ (NEGATIVE); Nitrite Urine UA NEGATIVE (Negative); Occult Blood Urine UA 1+ (Negative); Protein Urine UA NEGATIVE (Negative); Specific Gravity Urine UA <=1.005 (1.000-1.035); Urobilinogen Urine UA 0.2 E.U./dL (0.2)
[2020-04-02 16:19] LABS: RBC Urine 1-5/HPF (0-5/HPF); WBC Urine 1-5/HPF (0-5/HPF)
[2020-04-02 16:20] LABS: Culture Indicated Urine Specimen Cultured
== END ==
PROVIDERS: PCP Family Medicine; Referring Provider Family Medicine; Visit Provider Family Medicine
DX: N39.0 Urinary tract infection, site not specified (principal)
CPT/HCPCS: 81001; 87077; 87086; 87186

== ENCOUNTER → 2020-11-27 15:32 | Outpatient (CLI) | payer MEDICARE, OTHER, SELFPAY ==
[2020-11-27 16:01] LABS: Appearance Urine UA CLEAR; Bilirubin Urine UA NEGATIVE (NEGATIVE); Color Urine UA YELLOW; Glucose Urine UA NEGATIVE (Negative); Ketones Urine UA NEGATIVE (NEGATIVE); Leukocyte Esterase Urine UA 1+ (NEGATIVE); Nitrite Urine UA NEGATIVE (Negative); Occult Blood Urine UA 1+ (Negative); Protein Urine UA NEGATIVE (Negative); Specific Gravity Urine UA <=1.005 (1.000-1.035); Urobilinogen Urine UA 0.2 E.U./dL (0.2)
[2020-11-27 16:02] LABS: pH Urine UA 6.5 (4.5-8.0)
[2020-11-27 16:32] LABS: RBC Urine 1-5/HPF (0-5/HPF)
[2020-11-27 16:33] LABS: Amorphous Sediment Urine 1+; Bacteria Urine Few (2-10); Culture Indicated Urine Specimen Cultured; Squamous Epithelial Cell Urine 0-1 /HPF (0-5/HPF); WBC Urine 5-10/HPF (0-5/HPF)
== END ==
PROVIDERS: PCP Family Medicine; Referring Provider Family Medicine; Visit Provider Family Medicine
DX: R30.0 Dysuria (principal); R35.0 Frequency of micturition; R82.90 Unspecified abnormal findings in urine
CPT/HCPCS: 81001; 87077; 87086; 87186

== ENCOUNTER → 2021-02-02 09:31 | Outpatient (CLI) | payer MEDICARE, OTHER, SELFPAY ==
[2021-02-02 12:50] LABS: BUN Creatinine Ratio 21.7 (6-22); Blood Urea Nitrogen 15 mg/dL (7-17); Calcium 9.1 mg/dL (8.4-10.2); Carbon Dioxide 32 mmol/L (22-32); Chloride 102 mmol/L (98-107); Estimated Glomerular Filt Rate > 60.0 mL/min (>60); Glucose 91 mg/dL (80-110); HEMOLYSIS < 15 (0-50); Potassium 4.3 mmol/L (3.4-5.1); Sodium 137 mmol/L (137-145)
== END ==
PROVIDERS: PCP Family Medicine; Referring Provider Internal Medicine Cardiovascular Disease; Visit Provider Internal Medicine Cardiovascular Disease
DX: I48.0 Paroxysmal atrial fibrillation (principal)
CPT/HCPCS: 36415; 80048

== ENCOUNTER → 2021-02-19 10:45 | Outpatient (CLI) | payer MEDICARE, OTHER, SELFPAY ==
--- NOTE | 2021-02-19 10:48 | DI.RAD.S_ITS ---
PROCEDURE: XR DEXA AXIAL SKELETON INDICATIONS: postmenopausal COMPARISON: [facility], CR, XR DEXA AXIAL SKELETON, 01/09/2018, 15:07. FINDINGS: This blank DEXA report has been sent in error by the PACS system. The correct and complete report will be forthcoming in 1-2 days. Thank you for your patience and understanding. Dictated by: Sienna Lan MD, PhD on 02/19/2021 at 17:16 Approved by: Sienna Lan MD, PhD on 02/19/2021 at 17:16
== END ==
PROVIDERS: PCP Family Medicine; Referring Provider Family Medicine; Visit Provider Family Medicine
DX: Z78.0 Asymptomatic menopausal state (principal); Z82.62 Family history of osteoporosis
CPT/HCPCS: 77080

== ENCOUNTER → 2022-01-30 11:56 | Outpatient (CLI) | payer MEDICARE, OTHER, SELFPAY ==
[2022-01-30 13:08] LABS: Add Manual Diff / Slide Review NO; Basophils Absolute Auto 0 /uL (0-100); Basophils Percent Auto 0.5 % (0-2); Eosinophils Absolute Auto 200 /uL (0-450); Eosinophils Percent Auto 3.1 % (2-4); Hematocrit 42.8 % (36-46); Hemoglobin 14.6 g/dL (12.0-16.0); Lymphocytes Absolute Auto 1400 /uL (1100-4500); Lymphocytes Percent Auto 24.7 % (25-40); Mean Corpuscular HGB Conc 34.2 % (30-36); Mean Corpuscular Hemoglobin 31.5 PG (26-34); Mean Corpuscular Volume 92.1 fL (80-100); Monocytes Absolute Auto 600 /uL (0-900); Monocytes Percent Auto 9.9 % (3-14); Neutrophils Absolute Auto 3500 /uL (1500-7000); Neutrophils Percent Auto 61.8 % (50-75); Platelet Count 198 X10^3/uL (150-400); Red Blood Cell Count 4.64 X10^6/uL (4.0-5.2); Red Cell Distribution Width 13.1 % (11.6-14.8); White Blood Cell Count 5.7 X10^3/uL (4.5-11.0)
[2022-01-30 13:29] LABS: Alanine Aminotransferase 16 IU/L (<35); Albumin 3.8 g/dL (3.5-5.0); Albumin Globulin Ratio 1.4 (1.0-2.8); Alkaline Phosphatase 57 U/L (38-126); Aspartate Aminotransferase 19 IU/L (14-36); BUN Creatinine Ratio 23.3 (6-22); Bilirubin Total 0.4 mg/dL (0.2-1.3); Blood Urea Nitrogen 17 mg/dL (7-17); Calcium 9.2 mg/dL (8.4-10.2); Carbon Dioxide 28 mmol/L (22-32); Chloride 102 mmol/L (98-107); Estimated Glomerular Filt Rate > 60 mL/min (>60); Globulin 2.7 g/dL (1.7-4.1); Glucose 78 mg/dL (80-110); HEMOLYSIS < 15 (0-50); Potassium 4.6 mmol/L (3.4-5.1); Sodium 139 mmol/L (137-145); Total Protein 6.5 g/dL (6.3-8.2)
== END ==
PROVIDERS: PCP Family Medicine; Referring Provider Family Medicine; Visit Provider Family Medicine
DX: E66.9 Obesity, unspecified (principal); I48.0 Paroxysmal atrial fibrillation
CPT/HCPCS: 36415; 80053; 85025

== ENCOUNTER → 2022-02-04 08:41 | Outpatient (CLI) | payer MEDICARE, OTHER, SELFPAY ==
--- NOTE | 2022-02-04 08:42 | DI.US.S_ITS ---
PROCEDURE: US ABDOMEN COMPLETE INDICATIONS: f/u findings on CT, possible liver cirrhosis on CT. TECHNIQUE: Real-time scanning was performed of the abdominal and retroperitoneal organs, with image documentation. Color Doppler was also utilized. COMPARISON: [facility], CT, CT ANGIO CHEST, 10/15/2021, 9:39. FINDINGS: Liver: The liver demonstrates normal size and normal overall echotexture. No masses or abnormal liver vascularity can be seen. Likely simple appearing cysts can be seen on the left that measure up to 1.6 and up to 0.7 cm. These demonstrate no abnormal vascularity. Gallbladder: No findings of gallstones or sludge are seen. The gallbladder wall is not thickened, measuring 3 mm or less. No specific pericholecystic fluid is seen. The sonographic Crane sign is negative. Biliary ducts: Intrahepatic bile ducts are non-dilated. Extrahepatic bile duct caliber measures 6 mm. Normal is 6-7 mm or less in diameter, or 10 mm or less post-cholecystectomy. Pancreas: Visualized portions of the pancreas are sonographically normal. Spleen: Spleen is normal in size and homogeneous in echotexture. Kidneys: Kidneys are normal in size and echotexture. Right kidney measures 10.2 cm long; left kidney measures 10 cm long. No hydronephrosis or nephrolithiasis. No solid masses. Aorta: Visualized aorta is normal in caliber at less than 3 cm. Iliacs: Proximal common iliac arteries are normal in caliber at less than 2.5 cm. IVC: Intrahepatic inferior vena cava is patent. Miscellaneous: No free abdominal fluid. IMPRESSION: Normal appearing liver, without findings cirrhosis by ultrasound. Incidental note is made of: Simple appearing liver cysts Dictated by: Herrera Willis M.D. on 02/04/2022 at 12:59 Approved by: Herrera Willis M.D. on 02/04/2022 at 13:01
== END ==
PROVIDERS: PCP Family Medicine; Referring Provider Family Medicine; Visit Provider Family Medicine
DX: R93.2 Abnormal findings on diagnostic imaging of liver and biliary tract (principal)
CPT/HCPCS: 76700

== ENCOUNTER → 2022-04-20 12:07 | Outpatient (CLI) | payer MEDICARE, OTHER, SELFPAY ==
[2022-04-20 12:49] LABS: COVID19 -Nasal RAPID Negative (Negative)
--- NOTE | 2022-04-21 14:11 | DI.NM.S_ITS ---
DATE OF SERVICE: April 20, 2022 PROCEDURE PERFORMED: Exercise treadmill stress and rest myocardial perfusion imaging with gating to assess ejection fraction and regional wall motion. ORDERING PROVIDER: Yazan Proctor MD INDICATIONS: The patient is a 76-year-old female with paroxysmal atrial fibrillation status post ablation with recurrent atrial fibrillation and exertional dyspnea. CARDIAC STRESS: The patient was able to exercise for 5 minutes, 52 seconds on a standard Abdoul protocol suggesting good exercise capacity with an BREANNA of -15%. Her resting ECG shows a sinus rhythm at 63 bpm with occasional PACs, but she converts to atrial fibrillation in the second minute of exercise with variable heart rates up to 145 bpm (101% of her predicted maximum). She had a normal blood pressure response. She had no chest pain or other anginal symptoms. Her resting ECG shows normal ST segments and there are no significant ST-segment shifts to suggest ischemia. At 4 minutes 30 seconds of exercise at a heart rate of 128 bpm, 25.6 millicuries of technetium-99m Myoview was injected and she was imaged 10 minutes later using a gated SPECT acquisition protocol. The day prior while at rest, she had been injected with 27.3 millicuries of technetium-99m Myoview was imaged 20 minutes later, again using a gated acquisition SPECT protocol. FINDINGS: RAW DATA: There is fair myocardial tracer uptake but with obvious moderate breast shadows noted across the anterior portion of the left ventricle. The lung/heart ratio is normal at 0.28 with a normal TID ratio of 0.77. QUANTITATED GATED SPECT: Post-stress ejection fraction is estimated at 72% without any focal wall motion abnormality. Resting ejection fraction is 75% with a normal end-diastolic volume of 105 mL. Tracer uptake of the right ventricular freewall is mildly increased which can be an indication of a right ventricular stress condition. MYOCARDIAL PERFUSION SCAN: The post-stress supine images show a moderate perfusion defect in the mid to distal anterior wall and anterior septum extending to but not including the apex in a pattern that would be consistent with breast attenuation artifact, supported by its complete resolution on the prone images which show a normal perfusion pattern. The resting images show a similar perfusion pattern as to the post-stress supine images, although with slight improvement in the anteroseptal defect. IMPRESSION: 1. Probable normal myocardial perfusion study. 2. Predominantly fixed, but slightly reversible defect in the mid to distal anterior wall and anterior septum that completely resolves on the prone images, consistent with breast attenuation artifact. While a previous nontransmural infarction with mild cheryl-infarct ischemia cannot be entirely excluded, the absence of any other indicators of ischemia or wall motion abnormality mitigate against this. 3. Normal left ventricular systolic function without any focal wall motion abnormality and normal left ventricular volumes. There is mild evidence for a possible right ventricular stress condition. 4. Good exercise capacity without angina or ECG evidence of ischemia. Her resting ECG shows sinus rhythm at 63 bpm but she develops a moderately rapid atrial fibrillation early in exercise that persists throughout the remainder of the study into recovery but she was relatively asymptomatic. Pricila Vinson - AURELIANO/adithya/cs doc#: [id number]/job#: [id number] dd: 04/21/2022 13:10:00 dt: 04/21/2022 13:44:00 DICTATING MD/COPIES TO: Evans Barajas MD; Yazan Proctor MD COPIES MNE: ZANE;
== END ==
PROVIDERS: Specialist; PCP Family Medicine; Referring Provider Internal Medicine Cardiovascular Disease; Visit Provider Internal Medicine Cardiovascular Disease
DX: I48.0 Paroxysmal atrial fibrillation (principal); R06.00 Dyspnea, unspecified; Z20.822 Contact with and (suspected) exposure to COVID-19
CPT/HCPCS: 78452; 87635; 93017; A9502

== ENCOUNTER → 2022-07-22 10:17 | Outpatient (CLI) | payer MEDICARE, SELFPAY ==
[2022-07-22 13:40] LABS: Appearance Urine UA CLOUDY; Bilirubin Urine UA NEGATIVE (NEGATIVE); Color Urine UA YELLOW; Glucose Urine UA NEGATIVE (Negative); Ketones Urine UA NEGATIVE (NEGATIVE); Leukocyte Esterase Urine UA TRACE (NEGATIVE); Nitrite Urine UA NEGATIVE (Negative); Occult Blood Urine UA 1+ (Negative); Protein Urine UA NEGATIVE (Negative); Urobilinogen Urine UA 0.2 E.U./dL (0.2)
[2022-07-22 14:13] LABS: Amorphous Sediment Urine 3+; Bacteria Urine Many (>30); RBC Urine 1-5/HPF (0-5/HPF); WBC Urine 5-10/HPF (0-5/HPF)
[2022-07-22 14:14] LABS: Culture Indicated Urine Specimen Cultured
== END ==
PROVIDERS: PCP Family Medicine; Visit Provider Family Medicine
DX: R30.0 Dysuria (principal)
CPT/HCPCS: 81001; 87077; 87086; 87186

== ENCOUNTER → 2022-12-08 10:34 | Outpatient (CLI) | payer MEDICARE, SELFPAY ==
--- NOTE | 2022-12-08 10:36 | DI.RAD.S_ITS ---
PROCEDURE: XR KNEE RT 3V INDICATIONS: Right knee pain TECHNIQUE: 3 views of the knee were acquired. COMPARISON: [facility], , XR KNEE RT 3V, 03/16/2018, 15:33. FINDINGS: Bones: No fractures or dislocations. No suspicious bony lesions. Moderate-severe patellofemoral compartment joint space narrowing, spurring, subchondral cystic change. Mild medial lateral compartment degenerative changes also present. Soft tissues: No joint effusion. IMPRESSION: No acute osseous abnormality. Degenerative changes of the knee are present. If symptoms persist, follow-up radiographs and/or CT or MRI may be helpful for further evaluation. Dictated by: Gopi Shepard M.D. on 12/08/2022 at 13:14 Approved by: Gopi Shepard M.D. on 12/08/2022 at 13:16
[2022-12-08 14:55] LABS: Alanine Aminotransferase 21 IU/L (<35); Albumin Globulin Ratio 1.5 (1.0-2.8); Alkaline Phosphatase 63 U/L (38-126); Aspartate Aminotransferase 23 IU/L (14-36); BUN Creatinine Ratio 28.8 (6-22); Bilirubin Total 0.4 mg/dL (0.2-1.3); Blood Urea Nitrogen 19 mg/dL (7-17); Calcium 9.2 mg/dL (8.4-10.2); Carbon Dioxide 28 mmol/L (22-32); Chloride 99 mmol/L (98-107); Estimated Glomerular Filt Rate > 60 mL/min (>60); Globulin 2.6 g/dL (1.7-4.1); Glucose 79 mg/dL (80-110); HEMOLYSIS < 15 (0-50); Potassium 4.7 mmol/L (3.4-5.1); Sodium 135 mmol/L (137-145); Total Protein 6.6 g/dL (6.3-8.2)
[2022-12-08 15:28] LABS: Thyroid Stimulating Hormone 2.42 uIU/mL (0.47-4.68)
== END ==
PROVIDERS: Internal Medicine Cardiovascular Disease; PCP Family Medicine; Referring Provider Nurse Practitioner Family; Visit Provider Nurse Practitioner Family
DX: I48.0 Paroxysmal atrial fibrillation (principal); M25.561 Pain in right knee
CPT/HCPCS: 36415; 73562; 80053; 84443

== ENCOUNTER 2022-12-14 12:10 | Emergency (ER) | payer MEDICARE, SELFPAY ==
[2022-12-14 12:38] VITALS: BP 147/73; PULSE 56; RESP 18; TEMP 36.1; O2SAT 98; BMI 37.0
--- NOTE | 2022-12-14 13:14 | ED_ITS ---
HPI - Extremity Problem <Beatrice Harley PA-C - Last Filed: 12/14/22 14:46> General Chief complaint: Extremity Problem,Nontraumatic Stated complaint: right knee pain hard to bend t-7 Time Seen by Provider: 12/14/22 13:07 Source: patient Mode of arrival: Family Vehicle History of Present Illness HPI Narrative: 77-year-old female presents with concern for persistent right knee pain. Patient states that in late mid October she was more active than usual in prep for people coming to visit around the 16 of November. She does not remember any specific injuries other than being more active than usual and noticed that she was having right knee pain. She states she pretty much ignored it other than taking some Tylenol while she had people visiting in early November. In the last few weeks it is become more persistent it is painful with bending and painful with standing and walking. She feels pain in the back of her knee? like there is something there? at times. She has noticed some swelling in her feet and ankles bilaterally but states it has not been worse or different than usual for her. She has not had pain in her calf but describes pain in her knee in general. She was seen in the walk-in clinic last week and had x-rays done but is having persistent pain. She denies any other complaints or concerns including chest pain, shortness of breath or any other symptoms. Related Data Home Medications Medication Instructions Recorded Confirmed apixaban 5 mg tablet (Eliquis) 5 mg PO BID ##0 10/26/17 12/08/22 Resmed Aircurve 10 BIPAP #1 ea 12/25/18 12/08/22 flecainide 50 mg tablet 100 mg PO Q12H 11/19/21 12/08/22 metoprolol succinate 25 mg 25 mg PO BID #0 tabs 11/19/21 12/08/22 tablet,extended release 24 hr Previous Rx's Medication Instructions Recorded Portable Oxygen Concentrator #1 ea 07/21/21 betamethasone dipropionate 0.05 % See Rx Instructions .Route 06/18/22 topical ointment .COMPLEX #15 grams sertraline 100 mg tablet 150 mg PO DAILY 90 days #135 tabs 10/05/22 tramadol 50 mg tablet 50 mg PO BID PRN pain 3 days #10 12/14/22 tabs Allergies Allergy/AdvReac Type Severity Reaction Status Date / Time trimethoprim Allergy Severe hives, Verified 12/14/22 12:42 headache, nausea procaine [From NOVOCAIN] Allergy Unknown HEART Verified 12/14/22 12:42 RACING Sulfa (Sulfonamide Allergy hives, Verified 12/14/22 12:42 Antibiotics) nausea, headache Review of Systems <Beatrice Harley PA-C - Last Filed: 12/14/22 14:46> Review of Systems Narrative: See HPI Patient History <Beatrice Harley PA-C - Last Filed: 12/14/22 14:46> Medical History Ankle pain (~2015) Chicken pox (~1951) Chronic back pain COVID-19 Depression (~2010) Foot pain (~2015) Ganglion cyst Hay fever (~2015) Hearing deficit History of fibrocystic disease of breast Lichen sclerosus Measles (~1949) Migraines (~2004) Mumps Obstructive sleep apnea of adult (~02/2018) Osteoporosis (~2013) Tinnitus (~1999) Vision disorder Surgical History Anesthesia H/O cardiac radiofrequency ablation (~10/20/21) History of tonsillectomy Status post bunionectomy Family History Brother Age: 73 Heart disease Sleep apnea Father Heart disease Stroke Smoker Grandmother Heart disease Smoker Mother Heart disease Hypertension Smoker Grandfather Thrombosis Social History marital status: details: nathalia Bourgeois, lives in [place] household members: spouse lives independently: Yes caregiver/support person: No occupational status: other Smoking Status: Never smoker alcohol intake: current substance use type: does not use caffeine: No Smoking Status: Never smoker alcohol intake frequency: 0-2 drinks per day Substance Use Type: does not use Exam <Beatrice Harley PA-C - Last Filed: 12/14/22 14:46> Narrative Exam Narrative: GENERAL: [77] year old patient appears stated age. Well-developed patient, in mi ld distress, ambulates with a hiking poll. HEAD: Atraumatic. Normocephalic. EYES: Pupils equal round and reactive. Extraocular motions intact. No scleral icterus. No injection or drainage. ENT: Nose without bleeding, purulent drainage. Airway patent. NECK: Trachea midline. Non tender CARDIOVASCULAR: Regular rate and rhythm without murmurs, gallops, or rubs. RESPIRATORY: Clear to auscultation. Breath sounds equal bilaterally. No wheezes, rales, or rhonchi. EXTREMITIES: There is some tenderness with palpation over the medial and lateral right knee as well as posterior knee/popliteal fossa, there is no appreciable erythema or heat present, calf is slightly tender proximally just inferior to the popliteal fossa but otherwise nontender and appears equal in size bilaterally. Pedal pulses intact bilaterally. Patient has intact range of motion at the knee and ankle but increased pain with flexion at the knee both active and passive. No edema or joint tenderness. NEURO: AOx3. SKIN: No rash or erythema of visible areas Initial Vital Signs Initial Vital Signs: Vital Signs Temperature 97 F L 12/14/22 12:38 Pulse Rate 56 L 12/14/22 12:38 Respiratory Rate 18 12/14/22 12:38 Blood Pressure 147/73 H 12/14/22 12:38 Pulse Oximetry 98 12/14/22 12:38 Oxygen Delivery Method Room Air 12/14/22 12:38 <Tristian Caldera MD - Last Filed: 12/15/22 08:30> Initial Vital Signs Initial Vital Signs: Vital Signs Temperature 97 F L 12/14/22 12:38 Pulse Rate 56 L 12/14/22 12:38 Respiratory Rate 18 12/14/22 12:38 Blood Pressure 147/73 H 12/14/22 12:38 Pulse Oximetry 98 12/14/22 12:38 Oxygen Delivery Method Room Air 12/14/22 12:38 Course <Beatrice Harley PA-C - Last Filed: 12/14/22 14:46> Orders Ordered: ED Orders 12/14/22 13:30 perip venous low extrem rt Stat Vital Signs Vital signs: Vital Signs - 8 hr 12/14/22 12:38 Temperature 97 F L Pulse Rate 56 L Respiratory Rate 18 Blood Pressure 147/73 H Pulse Oximetry 98 Oxygen Delivery Method Room Air <Tristian Caldera MD - Last Filed: 12/15/22 08:30> Orders Ordered: ED Orders 12/14/22 13:30 US periph venous low extrem rt Stat Vital Signs Vital signs: Vital Signs - 8 hr 12/14/22 12:38 Temperature 97 F L Pulse Rate 56 L Respiratory Rate 18 Blood Pressure 147/73 H Pulse Oximetry 98 Oxygen Delivery Method Room Air MDM - Extremity (Nontraumatic) <Beatrice Harley PA-C - Last Filed: 12/14/22 14:46> Imaging Data Extremity x-ray #1: My Impression: Agree with Radiology interpretation Radiologist's Impression: XRAY from 12/08/[address] [address] XRay Report Signed Patient: Pricila Vinson MR#: [id number] : 1945 Acct:[id number] Age/Sex: 77 / F Date of Service: 12/08/22 Loc: RAD Accession Number: [id number] ?? Procedure: XR knee RT 3V Ordering Provider: Rahel Baez PROCEDURE:? XR KNEE RT 3V ? INDICATIONS:? Right knee pain ? TECHNIQUE:? 3 views of the knee were acquired.? ? COMPARISON:? [facility], , XR KNEE RT 3V, 03/16/2018, 15:33. ? FINDINGS:? ? Bones:? No fractures or dislocations.? No suspicious bony lesions.? Moderate- severe patellofemoral compartment joint space narrowing, spurring, subchondral cystic change.? Mild medial lateral compartment degenerative changes also present. ? Soft tissues:? No joint effusion.? ? IMPRESSION:? No acute osseous abnormality.? Degenerative changes of the knee are present. ?If symptoms persist, follow-up radiographs and/or CT or MRI may be helpful for further evaluation. ? ? Dictated by: Gopi Shepard M.D. on 12/08/2022 at 13:14 ? ? Approved by: Gopi Shepard M.D. on 12/08/2022 at 13:16?? US - DVT: My Impression: Agree with Radiology interpretation Radiologist's Impression: [address] [address] Ultrasound Report Signed Patient: Pricila Vinson MR#: [id number] : 1945 Acct:[id number] Age/Sex: 77 / F Date of Service: 12/14/22 Loc: ED Accession Number: [id number] ?? Procedure: US periph venous low extrem rt Ordering Provider: Beatrice Harley P.A-C PROCEDURE:? US PERIPH VENOUS LOW EXTREM RT ? INDICATIONS:? RIGHT KNEE PAIN ? TECHNIQUE:? Real-time imaging, as well as color and pulse Doppler interrogation, were performed of the lower extremity deep veins from the inguinal ligament to the popliteal fossa.? ? COMPARISON:? None. ? FINDINGS:? The common femoral, femoral and popliteal veins are normally compressible, and free of intraluminal thrombus.? Color and pulse Doppler demonstrate normal phasic intraluminal flow.? There is normal augmentation response to distal compression maneuver. ? ? A 4.1 x 4.9 x 1.2 cm nonvascular Coe's cyst can be seen. ? ? IMPRESSION:? ? Negative for deep venous thrombosis. ? ? Dictated by: Herrera Willis M.D. on 12/14/2022 at 13:26 ? ? Approved by: Herrera Willis M.D. on 12/14/2022 at 13:27?? MDM Narrative Medical decision making narrative: This is a 77-year-old woman with history of obesity, paroxysmal atrial fibrillation GILDA who presents with concern for persistent knee pain. Pain has been present since mid October worsened in November and worsened even more in the last 2 weeks, she was seen at the walk-in clinic and had x-rays done which were notable for some bone spurring as well as significant compression of the space between her femur and tibia. Based on exam and history today some concern for Coe cyst and ultrasound is ordered for both DVT and eval of possible Coe cyst. This returns negative for DVT and positive for approximately 5 cm coe cyst of the affected right knee. Counseled the patient that she may benefit from seeing Orthopedics possibly having a steroid injection, she has a physical therapy appointment today and will discuss this with her physical therapist as well, she is encouraged to follow up closely with her primary care provider, given information for orthopedic provider, and a short prescription for tramadol she is encouraged to take Tylenol for pain and do activity as tolerated. Return precautions provided, follow-up plan discussed, all questions answered. Discharge Plan Departure Patient Disposition: Home Clinical Impression: Coe's cyst of knee, Acute knee pain, Degenerative arthritis Activity Restrictions/Additional Instructions: *You have been diagnosed with [Coe cyst] *What to do: *Please continue to take your regular medications as directed. [ ] New medication prescriptions sent to your pharmacy: [ ] [ ] New medication written as a paper prescription [1 ] No new medications given *Please follow up with your primary care provider in 2-3 days, call for an appointment. Let them know you were seen in the Emergency Department and that we ask that you be seen in follow up. We will electronically transmit a record of today's note if your PCP is in our system. We did an ultrasound of your right knee and leg today to further evaluate and was not very suspicious for DVT but we did evaluate for this and did not find evidence of this, I was suspicious for a Coe cyst and this was seen on your imaging today. It is about 5 cm. And likely explains that your pain behind her knee and your pain with walking and bending her knee. These can be helped with an intra-articular steroid injection, I recommend you see orthopedics for this, you can also talk to her physical therapist today about the presence of this problem. I did prescribe a short course of tramadol medication although I recommend you take Tylenol in general he can try the tramadol as well. I have included information below for a current on-call orthopedic surgeon however you can see any orthopedic provider of your choice you can also talk to her primary care provider about who he should see although I recommend he get in as soon as possible. Please try do ng their office. *If you do not have a primary care provider please contact the [facility] Resource line at [phone]. They will ask some questions about your medical history and help get you set up with a doctor in the community. *Return to Emergency Department if you should have any new, worsening or concerning symptoms, such as [fever greater than 101 F, shaking chills, worsening pain, persistent vomiting or other bothersome symptoms] Prescriptions: New tramadol 50 mg tablet 50 mg PO BID PRN (Reason: pain) 3 Days Qty: 10 0RF No Action Eliquis 5 mg Tablet 5 mg PO BID Qty: 0 (DME) Portable Oxygen Concentrator See Rx Instructions .Route .MEDSUPPLY Qty: 1 0RF Rx Instructions: 08/12/21-09/12/21 1L at HS flecainide 50 mg tablet 100 mg PO Q12H metoprolol succinate 25 mg tablet extended release 24 hr 25 mg PO BID Qty: 0 betamethasone dipropionate 0.05 % ointment See Rx Instructions .ROUTE .COMPLEX Qty: 15 0RF Dose Instruction: APPLY TOPICALLY TO THE AFFECTED AREA AT BEDTIME Rx Instructions: APPLY TOPICALLY TO THE AFFECTED AREA AT BEDTIME sertraline 100 mg tablet 150 mg PO DAILY 90 Days Qty: 135 3RF (DME) Resmed Aircurve 10 BIPAP Qty: 1 Dose Instruction: As directed Patient Comments: Pressure: IPAP 10 EPAP 6 DME: [employer] Rx Instructions: As directed Referrals: Inderjit Horta MD [Physician] - Jemima Morrell DO [Primary Care Provider] - Stand Alone Forms: Patient Portal/API <Tristian Caldera MD - Last Filed: 12/15/22 08:30> Cosign ED Attending Cosleilaature Attestation: I was immediately available in the department for consultation. ?This documentation has been reviewed and I agree with assessment and plan. Supervised by Tristian Caldera MD
--- NOTE | 2022-12-14 13:30 | DI.US.S_ITS ---
PROCEDURE: US PERIPH VENOUS LOW EXTREM RT INDICATIONS: RIGHT KNEE PAIN TECHNIQUE: Real-time imaging, as well as color and pulse Doppler interrogation, were performed of the lower extremity deep veins from the inguinal ligament to the popliteal fossa. COMPARISON: None. FINDINGS: The common femoral, femoral and popliteal veins are normally compressible, and free of intraluminal thrombus. Color and pulse Doppler demonstrate normal phasic intraluminal flow. There is normal augmentation response to distal compression maneuver. A 4.1 x 4.9 x 1.2 cm nonvascular Coe's cyst can be seen. IMPRESSION: Negative for deep venous thrombosis. Dictated by: Herrera Willis M.D. on 12/14/2022 at 13:26 Approved by: Herrera Willis M.D. on 12/14/2022 at 13:27
== END 2022-12-14 14:41 | disposition home or self-care (01) ==
PROVIDERS: Emergency Provider Student in an Organized Health Care Education/Training Program; PCP Family Medicine
DX: M71.21 Synovial cyst of popliteal space [Baker], right knee (principal); M25.561 Pain in right knee; M17.11 Unilateral primary osteoarthritis, right knee; Z79.01 Long term (current) use of anticoagulants; Z79.899 Other long term (current) drug therapy
CPT/HCPCS: 93971; 99283

== ENCOUNTER → 2023-02-10 13:13 | Outpatient (CLI) | payer MEDICARE, SELFPAY ==
--- NOTE | 2023-02-10 13:14 | DI.MRI.S_ITS ---
PROCEDURE: MR KNEE RT WO CON INDICATIONS: Right knee pain TECHNIQUE: Noncontrast sagittal PD fast spin echo and T2 fast spin echo with fat saturation, sagittal 3-D FLASH with fat saturation; coronal T1 spin echo and PD fast spin echo with fat saturation, and axial PD fast spin echo with fat saturation through the knee. COMPARISON: [facility], CR, XR KNEE RT 3V, 12/08/2022, 10:37. FINDINGS: Image quality: Excellent. Menisci: Medial extrusion of the medial meniscus. Radial tearing of the posterior horn medial meniscus at the meniscal root ligament insertion site. Linear oblique high T2 signal intensity traverses the inner, middle, and peripheral thirds of the medial meniscal body and posterior horn. Lateral meniscus is intact. Cruciate ligaments: The anterior and posterior cruciate ligaments appear intact. Medial structures: The medial collateral ligament appears intact, and demonstrates mild surrounding T2 signal elevation. Visualized portions of the pes anserinus tendons appear normal. No abnormal bursal fluid. Lateral structures: The lateral collateral ligament demonstrates mild T2 signal elevation at the femoral origin. The long and short heads of the biceps femoris tendon appear intact. The popliteus tendon appears normal. Iliotibial band appears normal. Anterior structures: The quadriceps and patellar tendons appear intact. Patellar alignment is normal. No femoral trochlear dysplasia or ventral trochlear prominence. No edema in the infrapatellar fat pad. Moderate prepatellar subcutaneous fluid and fat stranding. Bones and cartilage: No bone marrow contusions or fractures. Moderate subchondral degenerative marrow edema within the medial tibial plateau. Moderate tricompartmental periarticular osteophyte formation. Severe articular cartilage loss diffusely overlies the weight-bearing aspects of the medial femoral condyle and medial tibial plateau. Severe articular cartilage loss overlies the lateral patellar facet and lateral femoral trochlea. Joint space: There is a small knee joint effusion and a large Coe's cyst. Normal appearing synovial plicae are incidentally noted. IMPRESSION: 1. Tricompartmental osteoarthritis with associated articular cartilage loss. 2. Medial meniscal tearing. 3. Medial collateral ligament strain. 4. Low-grade partial thickness lateral collateral ligament tear. 5. Prepatellar bursitis. 6. Knee joint effusion and Coe's cyst. Dictated by: Reginaldo Jerez M.D. on 02/10/2023 at 14:30 Approved by: Reginaldo Jerez M.D. on 02/10/2023 at 14:32
== END ==
PROVIDERS: PCP Family Medicine; Referring Provider Family Medicine; Visit Provider Family Medicine
DX: S83.241A Other tear of medial meniscus, current injury, right knee, initial encounter (principal); S83.411A Sprain of medial collateral ligament of right knee, initial encounter; S83.421A Sprain of lateral collateral ligament of right knee, initial encounter; M17.11 Unilateral primary osteoarthritis, right knee; M70.41 Prepatellar bursitis, right knee; M25.461 Effusion, right knee; M25.561 Pain in right knee
CPT/HCPCS: 73721

== ENCOUNTER → 2023-06-21 11:34 | Outpatient (CLI) | payer MEDICARE, SELFPAY ==
[2023-06-21 12:57] LABS: Add Manual Diff / Slide Review NO; Basophils Absolute Auto 0 /uL (0-100); Basophils Percent Auto 0.4 % (0-2); Eosinophils Absolute Auto 200 /uL (0-450); Eosinophils Percent Auto 3.4 % (2-4); Hematocrit 43.8 % (36-46); Hemoglobin 14.9 g/dL (12.0-16.0); Lymphocytes Absolute Auto 900 /uL (1100-4500); Lymphocytes Percent Auto 19.1 % (25-40); Mean Corpuscular Hemoglobin 31.4 PG (26-34); Mean Corpuscular Volume 92.2 fL (80-100); Monocytes Absolute Auto 300 /uL (0-900); Monocytes Percent Auto 7.5 % (3-14); Neutrophils Absolute Auto 3200 /uL (1500-7000); Neutrophils Percent Auto 69.6 % (50-75); Platelet Count 223 X10^3/uL (150-400); Red Blood Cell Count 4.75 X10^6/uL (4.0-5.2); Red Cell Distribution Width 13.5 % (11.6-14.8); White Blood Cell Count 4.7 X10^3/uL (4.5-11.0)
[2023-06-21 13:23] LABS: BUN Creatinine Ratio 27.3 (6-22); Blood Urea Nitrogen 18 mg/dL (7-17); Calcium 9.7 mg/dL (8.4-10.2); Carbon Dioxide 26 mmol/L (22-32); Chloride 105 mmol/L (98-107); Estimated Glomerular Filt Rate > 60 mL/min (>60); Glucose 111 mg/dL (80-110); HEMOLYSIS < 15 (0-50); Sodium 136 mmol/L (137-145); Uric Acid 3.6 mg/dL (2.5-6.2)
[2023-06-21 13:29] LABS: Hemoglobin A1C% w Est Avg Glu 5.5 % (4.0-6.0)
[2023-06-21 13:38] LABS: Bilirubin Urine UA NEGATIVE (NEGATIVE); Color Urine UA YELLOW; Glucose Urine UA NEGATIVE (Negative); Ketones Urine UA NEGATIVE (NEGATIVE); Leukocyte Esterase Urine UA 1+ (NEGATIVE); Nitrite Urine UA POSITIVE (Negative); Occult Blood Urine UA TRACE-INTACT (Negative); Protein Urine UA NEGATIVE (Negative); Urobilinogen Urine UA 0.2 E.U./dL (0.2)
[2023-06-21 13:42] LABS: Appearance Urine UA CLOUDY; pH Urine UA 5.5 (4.5-8.0)
[2023-06-21 14:48] LABS: Urine Volume Low Vol <10mL unspun
[2023-06-21 14:49] LABS: Bacteria Urine Moderate (10-30); Culture Indicated Urine Specimen Cultured; RBC Urine 0-1/HPF (0-5/HPF); Squamous Epithelial Cell Urine None Seen (0-5/HPF); WBC Urine 5-10/HPF (0-5/HPF)
== END ==
PROVIDERS: PCP Family Medicine; Referring Provider Family Medicine; Visit Provider Family Medicine
DX: Z01.818 Encounter for other preprocedural examination (principal)
CPT/HCPCS: 36415; 80048; 81001; 83036; 84550; 85025; 87077; 87086; 87186

== ENCOUNTER → 2023-08-05 14:05 | Outpatient (CLI) | payer MEDICARE, SELFPAY | PROVIDERS: PCP Family Medicine; Referring Provider Family Medicine; Visit Provider Family Medicine | DX: Z01.818 Encounter for other preprocedural examination (principal) | CPT/HCPCS: 93005 ==

== ENCOUNTER 2023-08-18 06:23 | Day surgery (SDC) | payer MEDICARE, SELFPAY ==
[2023-08-04 08:46] VITALS: BMI 38.5
[2023-08-18] VITALS (14 sets, daily range): BP systolic 108–145; BP diastolic 61–80; PULSE 58–71; RESP 10–20; TEMP 36.1–36.5; O2SAT 90–97; BMI 38.5
--- NOTE | 2023-08-18 06:59 | DI.RAD.S_ITS ---
PROCEDURE: XR KNEE RT 1TO2V INDICATIONS: TKA TECHNIQUE: 2 view(s) of the knee acquired. COMPARISON: [facility], , XR KNEE RT 3V, 12/08/2022, 10:37. FINDINGS: Bones: Patient is status post knee joint arthroplasty. Hardware components are in expected positions. Visualized bony structures are intact. Soft tissues: Overlying postoperative changes are noted. IMPRESSION: Expected immediate postoperative appearance, status post total right knee arthroplasty. Dictated by: Mirza Tejeda M.D. on 08/18/2023 at 11:05 Approved by: Mirza Tejeda M.D. on 08/18/2023 at 11:05
--- NOTE | 2023-08-18 07:11 | PM.PREOP ---
Pre-operative Note Interval Note History & Physical reviewed/Exam performed by Physician: Yes Changes to H&P: No
[2023-08-18] MEDS: VANCOMYCIN 1,000 MG/200 ML PIGGYBACK 200 MG IV (07:12)
[2023-08-18] MEDS: LACTATED RINGERS 1,000 ML 42 ML IV ×2 (07:12→09:52)
--- NOTE | 2023-08-18 07:12 | P.OP_ITS ---
Operative Date/Time/Diagnoses Date of procedure: 08/18/23 Time of procedure: 08:00 Pre-op diagnosis: right knee OA Post-op diagnosis: same Procedure & Clinicians Procedure: right total knee arthroplasty Same procedure as scheduled: Yes Indications: The patient has had progressively worsening right knee pain with radiographic changes consistent with arthritis. Non-operative management has failed and the patient has requested total knee replacement. The risks, benefits and alternatives to surgery were discussed with the patient prior to proceeding. Risks discussed included, but were not limited to, failure to relieve pain, stiffness, infection, nerve damage, deep venous thrombosis, pulmonary embolism, stroke, coma, heart attack, permanent paralysis and , as well as the potential need for eventual revision of the prosthetic. Surgeon: Jessica Zavala Battery Service Technician: Eric Aguilar Click Yes if Unassisted: Yes Anesthesia Type: General and Spinal Operative Notes Findings: Severe right knee OA Closure Type: primary Specimen(s): none sent Prosthetic devices, grafts, tissues, transplants, or devices: Zavala and nephew adrianney BCS 2 size 3 femur, size 3 tibia, +9 poly, 32 x 7.5 mm patella Estimated Blood Loss (mL): 250 Blood products transfused: none Tourniquet time (min): 95 Procedure in detail: The patient was seen in the pre-operative area, where the patient identified the right knee as the operative site and this was marked with my initials. The patient received pre-operative antibiotics, and was taken to the operating room and placed on the operative table in the supine position. After satisfactory anesthesia, a observer electrical prospecting out was performed. The right leg was encircled with a tourniquet about the proximal thigh, and the leg was prepared from the toes to the tourniquet with ChloroPrep in the usual fashion and draped through sterile drapes. The leg was elevated and exsanguinated with Eschmark bandage and the tourniquet inflated to [250] mmHg pressure. A PA was used during the procedure and was essential for intraoperative retraction and safe implantation of the components. The knee was approached through an approximately 18 cm incision centered over the patella and carried into the knee through a medial parapatellar arthrotomy. Portion of the medial and lateral meniscus was resected. Soft tissue was carefully mobilized around the patella the patella was measured with a caliper. Bone was resected from the patella and the patellar height was reconstituted with up an appropriate sized patellar component. A cover was then placed on the patella. A small amount of additional medial and lateral meniscus was resected. Cori pins were placed in the femur. A tibial guide was pinned to the tibia and the robotic trackers were attached. The knee was meticulously navigated and mapped. We placed it through range of motion and did stressed and unstressed range of motion. The Cori robotic bur was used to resect the distal femur. It looked like an appropriate distal femoral cut and the cut was made without difficulty. The rotation was assessed and the appropriate size femoral guide was placed on the distal femur and finishing cuts were made. There was no evidence of notching. The anterior, posterior and chamfer cuts were then made. The posterior osteophytes and soft tissues were then removed. The posterior capsule was injected with part of a mixture of 60 ml 0.25% Marcaine mixed with 20 ml Exparel for post operative pain control. The remainder of this mixture was injected into the capsule and subcutaneous tissues during cement curing. The guide was meticulously navigated on the tibia. The tibia was then resected with a saw. The tibia was prepared. The rotation was assessed. The patient was placed in extension residual medial and lateral meniscus as well as any residual bone was carefully resected. [No] additional tibia was resected. Hemostasis was achieved especially posteriorly. Additional local was injected into the posterior capsule. The femoral component was trial was placed and the notch was finished. Trial tibial and femoral components were then placed and the knee placed through a range of motion. Range of motion was [0-130], with good stability throughout the range. The trials were then removed, and the tibia was finished. The bone was prepared with pulsatile lavage, and dried with a sponge. Cement was applied and the final prosthetics placed. Excess cement was removed during and after cement curing. A brief Betadine soak was performed. After confirming there was no extruded cement posteriorly, the final tibial insert was placed. The knee was copiously irrigated and the tourniquet deflated. Hemostasis was obtained with the bovie cautery. The capsule was closed with interrupted vicryl suture. The subcutaneous layer was closed with barbed sutures, and the skin with a running 3-0 V-Lock suture and Surgical glue. An Aquacel Ag dressing was applied and the patient was taken to recovery having tolerated the procedure well. Complications: none Post-operative Condition: stable Disposition: Acute Care Plan for aftercare: The patient will be maintained on a standard total knee replacement protocol with weight bearing as tolerated. The patient will receive aspirin and sequential compression devices for DVT prophylaxis. The patient will be discharged home when safe for the home environment.
[2023-08-18] MEDS: CELECOXIB 200 MG CAPSULE PO (07:13)
[2023-08-18] MEDS: ACETAMINOPHEN 325 MG TABLET 975 MG PO (07:13)
[2023-08-18] MEDS: TRANEXAMIC ACID 1,000 MG VIAL 1000 MG INJ ×2 (08:14→10:02)
[2023-08-18] MEDS: CEFAZOLIN 2 GM/100 ML PREMIX 100 ML IV ×2 (08:15→16:35)
--- NOTE | 2023-08-18 08:33 | SUR.OPER ---
Supine on padded OR bed. Pillow under head, arms secured on padded armboards <90 degree abduction. Safety belt across torso. Non-operative leg secured with tape over blanket over lower leg. Operative leg secured in Jasson positioner. Foam padded brace at thigh of operative leg.
[2023-08-18] MEDS: BUPIVACAINE 0.25% (PF) 60 ML, EPINEPHrine 0.3 MG INJ (08:42)
[2023-08-18] MEDS: BUPIVACAINE LIPOSOME 266 MG/20 ML VIAL INJ (08:43)
--- NOTE | 2023-08-18 11:16 | SUR.PHASEI ---
Report called to Juan
--- NOTE | 2023-08-18 11:19 | SUR.PHASEI ---
Transferred to the floor by Kyle with walker and 2 belongings bags.
[2023-08-18] MEDS: LACTATED RINGERS 1,000 ML 100 ML IV (11:48)
[2023-08-18] MEDS: ACETAMINOPHEN 325 MG TABLET 650 MG PO ×3 (11:48→23:05)
[2023-08-18] MEDS: OXYCODONE IR 5 MG TABLET PO ×3 (12:20→23:06)
--- NOTE | 2023-08-18 15:42 | PT.IIE ---
Current Diagnoses Unilateral primary osteoarthritis, right knee (08/18/23) Surgery Performed Operation Date: 08/18/23 07:45 Actual Procedures p Total Knee Arthroplasty - Robot(Right) - Jessica Zavala MD Surgical History (Last Updated 08/04/23 @ 09:18 by Digna Florentino, RN) Anesthesia H/O cardiac radiofrequency ablation (~10/20/21) History of tonsillectomy Hx of bilateral cataract extraction Hx of thumb surgery (~2013) Status post bunionectomy Medical History (Last Updated 08/04/23 @ 09:24 by Digna Florentino RN) Ankle pain (~2015) Anxiety Arthritis Chicken pox (~1951) Chronic back pain COVID-19 (~02/2023) Depression (~2010) Easy bruisability Foot pain (~2015) Ganglion cyst Hay fever (~2015) Hearing deficit Hearing impaired History of fibrocystic disease of breast Lichen sclerosus Measles (~1949) Migraines (~2004) Mumps Obstructive sleep apnea of adult (~02/2018) Osteoporosis (~2013) PAF (paroxysmal atrial fibrillation) Tinnitus (~1999) Uses self-applied continuous glucose monitoring device Vision disorder Physical Therapy Inpatient Evaluation/Re-Eval M1 PT/OT-IP Prior Functional Status Start: 08/18/23 12:39 Freq: NEEDED Status: Active Protocol: Document 08/18/23 15:27 MB (Rec: 08/18/23 15:41 MB [id number]) Medical Review Prior Functional Status Medical History Reviewed Yes Diet/Fluid Consistency Regular Communication WNLs Mobility and Gait I Activities of Daily Living and IADL's I, drove Social History Household Members spouse Living Arrangements House Number of Floors (Floors) One Floor Number of Stairs To Enter/Railing? No steps to enter Home Environment Standard Height Toilet,Walk in Shower Home Equipment Front Wheel Walker,Tub Transfer Bench,Grab Bars Near Toilet,Grab Bars In Shower Employment Status Retired M2 PT-IP Current Condition Start: 08/18/23 12:39 Freq: NEEDED Status: Active Protocol: Document 08/18/23 15:27 MB (Rec: 08/18/23 15:41 MB [id number]) Physical Therapy Current Condition Current Condition Evaluation Date 08/18/23 Treatment Diagnosis Right total knee replacement M3 PT-IP Subjective Start: 08/18/23 12:39 Freq: NEEDED Status: Active Protocol: Document 08/18/23 15:27 MB (Rec: 08/18/23 15:41 MB [id number]) Subjective Physical Therapy Visit Type Type Initial Evaluation Visit Start Time 12:40 Visit Stop Time 13:40 Number of RUG INSPECTOR Visits 0 Physical Therapy Visit Comments Patient Comments Pt is agreeable to PT. Therapy Pain Assessment Pain When Pain Assessed During Mobility Pain Present Pain Present Pain Reported Location Right Knee Intensity 5 Scale Used Numeric (0 - 10) Pain Management Techniques Apply Cold,Distraction, Modification of Treatment,Re- positioning,Timing of Activity with Medications M4 PT-IP Mobility and Gait Start: 08/18/23 12:39 Freq: NEEDED Status: Active Protocol: Document 08/18/23 15:27 MB (Rec: 08/18/23 15:41 MB [id number]) PT-Bed Mobility Assessment Rolling Level of Assist Minimal Assistance,1 Person Assistance Supine to Sit Supine to Sit Moderate Assistance,1 Person Assistance,Head of Bed Elevated,Bedrails Sit to Supine Sit to Supine Moderate Assistance,1 Person Assistance,Head of Bed Elevated,Bedrails Scooting Scooting to Edge of Bed Minimal Assistance Scooting Up and Down in Bed Minimal Assistance PT-Transfer Assessment Sit to and From Stand Sit to and from Stand Minimal Assistance,1 Person Assistance,Use of Upper Extremities Equipment Transfer Assistive Device Gait Belt,Front Wheeled Walker Orthotic/Prosthetic Devices or Brace: No Transfers Transfer Destination Bedside Commode Transfer Technique Stepping to the left Transfer Ability Level of Assist Minimal Assistance,1 Person Assistance,Use of Upper Extremities Comments Mobility Comments DIL who is a nurse is nearby for treatment and is available if PT and pt need assistance. Pt moves really well and has good right quad control and overall leg control, able to extend leg sitting EOB d/t bed is too tall for her. O2 sats on RA remain in the low to mid 90s at rest and after mobility. Pt's fingers are cold and O2 sats are difficult to read. Pt is severely orthostatic and so con't to check in and rest with mobility and then she still requests to get up to BSC and so performed. BP and HR in LUE : hook lying 146/74, 59; sitting 108/91, 68; standing 99/56, 64. Pt requires min A and cues for step-to stepping to step to the left with RW to commode, encouragement to WB through her right foot. She sits on commode many minutes and no success with urination. Returned to bed. Gait Assessment Gait Gait Assistance Required: Minimum Assistance,1 Person Assist Distance (Feet) 3 Able to Maintain Weight Bearing Status Yes During Gait Assistive Devices Assistive Device Gait Belt,Front Wheeled Walker Orthotic/Prosthetic Devices or Brace: No Gait Deviations General Gait Pattern Antalgic,Decreased Stride Length,Decreased Feet Clearance,Flexed Trunk,Step-to Gait,Wide Based Gait Factors Limiting Gait Function Factors Limiting Gait Function Decreased Activity Tolerance, Decreased Strength,Limited Range of Motion,Pain,Poor Balance,Poor Safety Awareness Comments Gait Comments Pt requires cues for stepping for step-to pattern forward and backwards with RW. PT-Balance Assessment Sitting Balance and Reactions Static Sitting Balance Ability Good Dynamic Sitting Balance Ability Good Standing Balance and Reactions Static Standing Balance Ability Fair Dynamic Standing Balance Ability Fair Device Used RW M5 PT-IP Objective Assessments Start: 08/18/23 12:39 Freq: NEEDED Status: Active Protocol: Document 08/18/23 15:27 MB (Rec: 08/18/23 15:41 MB [id number]) Orientation Orientation/Cognition Level of Alertness Alert Orientation Name,Age,Birthday,Month,Date, Year,Day of Week,Place, Situation Language Function Ability No Deficits Noted Safety Awareness Decreased Safety Awareness Memory Description No Deficits Noted Gross Range of Motion Upper Extremity ROM Impairments Defer to OT Lower Extremity ROM Assessment Right Impaired Impairments AROM right knee 5-40 in supine and then passive flexion to at least 70-80 deg sitting EOB and then pt is able to fully extend leg to keep it up when dangling sitting EOB Strength Lower Extremity Strength Assessment Right Impaired Ankle Normal Comments Strength Comments Right hip and knee not tested same day surgery, good quad engagement and control Sensation Assessment Sensation Gross Sensation WNL M6 PT-IP Treatment Start: 08/18/23 12:39 Freq: NEEDED Status: Active Protocol: Document 08/18/23 15:27 MB (Rec: 08/18/23 15:41 MB [id number]) Physical Therapy Treatment Exercises Exercises Ankle Pumps,Quad Sets,Heel Slides Education Education Provided Weight Bearing Status,Post-Op Packet,Safety Other Treatments Other Treatment Performed Toilet transfer/mobility M7 PT-IP Assessment and Plan Start: 08/18/23 12:39 Freq: NEEDED Status: Active Protocol: Document 08/18/23 15:27 MB (Rec: 08/18/23 15:41 MB [id number]) PT Summary Assessment and Plan Potential Rehabilitation Potential Excellent Status of Condition at Evaluation Evolving Summary Impairments Pain,ROM,Strength,Balance, Coordination,Bed Mobility, Transfers,Gait,Activity Tolerance Progress Towards Goals Progressing Toward Goals Assessment Summary Pt is a delightful 77 y/o female who does really well with mobility same day post-op despite severe orthostasis. She has good right knee quad engagement and control sitting EOB and movement and requires cues to WB through her right foot with standing and stepping. Up to BSC and back to bed. Anticipate she will mobilize even better as BP stabilizes. She has no steps at home and has good family support and OPPT is set-up. She has RW. Goals Bed Mobility Goal Independent Transfer Goal Independent,Front Wheeled Walker Gait Goal Independent,Front Wheel Walker Gait Distance 100 Days to Meet Goals 5 Frequency of Treatment Frequency Of Treatment Twice a Day Treatment Plan Physical Therapy Treatment Plan Bed Mobility Training,Transfer Training,Gait Training, Therapeutic Exercise,Balance Retraining,Post Op Education, Discharge Planning,Hot or Cold Pack,Neuromuscular Re-ed, Coordination Retraining,Manual Therapy Weight Bearing Status Weight Bearing Status Weight Bear as Tolerated Recommendations To Nursing Amount of Assist Needed 1 Person Assist Discharge Recommendations PT Discharge Recommendations Home with Assistance, Outpatient PT Transportation Needs at Discharge Private Vehicle
--- NOTE | 2023-08-18 17:09 | OT.IP.EVAL ---
Current Diagnoses Unilateral primary osteoarthritis, right knee (08/18/23) Surgery Performed Operation Date: 08/18/23 07:45 Actual Procedures p Total Knee Arthroplasty - Robot(Right) - Jessica Zavala MD Past Medical History (Last Updated 08/04/23 @ 09:24 by Digna Florentino, RN) Ankle pain (~2015) Anxiety Arthritis Chicken pox (~1951) Chronic back pain COVID-19 (~02/2023) Depression (~2010) Easy bruisability Foot pain (~2015) Ganglion cyst Hay fever (~2015) Hearing deficit Hearing impaired History of fibrocystic disease of breast Lichen sclerosus Measles (~1949) Migraines (~2004) Mumps Obstructive sleep apnea of adult (~02/2018) Osteoporosis (~2013) PAF (paroxysmal atrial fibrillation) Tinnitus (~1999) Uses self-applied continuous glucose monitoring device Vision disorder Surgical History (Last Updated 08/04/23 @ 09:18 by Digna Florentino RN) Anesthesia H/O cardiac radiofrequency ablation (~10/20/21) History of tonsillectomy Hx of bilateral cataract extraction Hx of thumb surgery (~2013) Status post bunionectomy Occupational Therapy Inpatient Evaluation/Re-Eval M1 PT/OT-IP Prior Functional Status Start: 08/18/23 16:53 Freq: NEEDED Status: Active Protocol: Document 08/18/23 16:54 [facility] (Rec: 08/18/23 17:09 [facility] [id number]) Medical Review Prior Functional Status Medical History Reviewed Yes Diet/Fluid Consistency Regular Communication WNLs Mobility and Gait I Activities of Daily Living and IADL's I with increased time, drove Social History Household Members spouse Living Arrangements House Number of Floors (Floors) One Floor Number of Stairs To Enter/Railing? No steps to enter Home Environment Standard Height Toilet,Walk in Shower Home Equipment Front Wheel Walker,Bedside Commode,Shower Seat with Backrest,Hand Held Shower, Commissary Superintendent,Grab Bars Near Toilet, Grab Bars In Shower Employment Status Retired M2 OT-IP Current Condition Start: 08/18/23 16:53 Freq: Status: Active Protocol: Document 08/18/23 16:54 [facility] (Rec: 08/18/23 17:09 [facility] [id number]) Occupational Therapy Current Condition Current Condition Evaluation Date 08/18/23 Treatment Diagnosis S/P R TKA Diagnosis Onset Date 08/18/23 M3 OT- IP Subjective and Pain Start: 08/18/23 16:53 Freq: Status: Active Protocol: Document 08/18/23 16:54 [facility] (Rec: 08/18/23 17:09 [facility] [id number]) OT- Subjective Occupational Therapy Visit Type Type Initial Evaluation Visit Start Time 16:00 Visit Stop Time 16:48 Occupational Therapy Visit Comments Patient Comments Pt agreed to get up to use the BSC. Patient/Caregiver Goals TO go home. OT Pain Assessment Pain When Pain Assessed At Rest Pain Present Pain Present Pain Reported Location Right Knee Intensity 1 Scale Used Numeric (0 - 10) M4 OT- IP ADL's Start: 08/18/23 16:53 Freq: Status: Active Protocol: Document 08/18/23 16:54 [facility] (Rec: 08/18/23 17:09 [facility] [id number]) OT SKB-Nxta-Kzdnkxg General Evaluation Self-Feeding Ability Independent OT ADL-Grooming General Evaluation Grooming Ability Independent Comments OT Grooming Comments While seated. OT ADL-Oral Care Comments Oral Care Comments Pt states to do later after eating dinner. OT ADL-Dressing General Eval Lower Body Dressing Ability Maximum Assistance Areas Needing Assistance Socks Comments OT Dressing Comments Able to show pt use of front desk monitor and sock aid and to be sure not to twist her knee while trying to get dressed. Educated pt to dress the RLE first and take out last. OT ADL-Toileting General Evaluation Toileting Ability Moderate Assistance Areas Needing Assistance Manage Clothing Comments OT Toileting Comments Pt needing assist for set-up and if wearing a brief would need assist at this time. Pt able to stand with FWW and CGA and able to wipe. Suggested use of wet ones, stand to wipe and possibly obtaining a toilet paper aid to increase ease with hygiene needs. OT ADL-Bathing Comments OT Bathing Comments Not performed. M5 OT- IP IADL's Start: 08/18/23 16:53 Freq: Status: Active Protocol: Document 08/18/23 16:54 [facility] (Rec: 08/18/23 17:09 [facility] [id number]) OT-Instrumental Activities of Daily Living Deficits IADL Deficits Identified Deficits Home Safety Awareness Awareness of Need for Assistance at Home Good Awareness Ability to Problem Solve Emergency Able to Problem Solve Situations Meal Preparation Meal Preparation Caregiver Provides Assist Quill Skinner Quill Skinner Caregiver Provides Assist M6 OT- IP Functional Cognition Start: 08/18/23 16:53 Freq: Status: Active Protocol: Document 08/18/23 16:54 [facility] (Rec: 08/18/23 17:09 [facility] [id number]) Cognitive Factors Limiting Selfcare Function Cognitive Ability Level of Alertness Alert Patient Orientation Name,Age,Birthday,Month,Date, Year,Day of Week,Place, Situation Attention Span Ability Capable of Focused Attention, Capable of Sustained Attention Ability to Follow Commands Able to Follow One Step Commands Cognitive Comments Cognitive Assessment Comments Pt needing safety cues for FWW use and vc to scoot forwards and push up from the bed or BSC to stand. OT- Vision and Hearing OT- Hearing Assessment OT- Hearing Assessment Use of Hearing Aids OT- Vision Assessment Visual Acuity WFL Visual Attentiveness WFL Occular Pursuits WFL M7 OT- IP Mobility and Balance Start: 08/18/23 16:53 Freq: Status: Active Protocol: Document 08/18/23 16:54 [facility] (Rec: 08/18/23 17:09 [facility] [id number]) OT- Bed Mobility Assessment Supine to Sit Supine to Sit Assist Contact Guard Assistance Scooting Scooting to Edge of Bed Standby Assistance OT-Transfer Assessment Sit to and From Stand Sit to and from Stand Minimal Assistance Transfers Transfer Ability Contact Guard Assistance Technique Transfer Destination Bed,Bedside Commode,Chair Transfer Technique Stand Step Pivot Devices Transfer Assistive Devices Gait Belt,Front Wheeled Walker Comments Mobility Comments CGA with HOB up to get to the edge of the bed. [place] to stand to the FWW from the high bed. CGA to transfer to the BSC and then recliner with MOD vc for safety. Pt on RA 95% and after transfer to recliner at 92%. OT- Balance Assessment Sitting Balance and Reactions Static Sitting Balance Ability Normal Dynamic Sitting Balance Ability Good Standing Balance and Reactions Static Standing Balance Ability Good Dynamic Standing Balance Ability Fair M8 OT- IP Objective Assessments Start: 08/18/23 16:53 Freq: Status: Active Protocol: Document 08/18/23 16:54 [facility] (Rec: 08/18/23 17:09 [facility] [id number]) OT Strength Comments Strength Comments WFL for needs. M9 OT- IP Assessment and Plan Start: 08/18/23 16:53 Freq: Status: Active Protocol: Document 08/18/23 16:54 [facility] (Rec: 08/18/23 17:09 [facility] [id number]) OT Summary Assessment and Plan Potential Rehabilitation Potential Excellent Analytic Complexity at Evaluation Low Summary OT Impairments Pain,Balance,Functional Mobility,Grooming,Dressing, Toileting,Bathing,Toilet Transfers,Shower Transfers, Activity Tolerance Progress Towards Goals Progressing Toward Goals Assessment Summary Pt low complexity and main barriers are decreased activity tolerance and pain. Pt looking to go home when medically stable and will need assist for ADL and mobility needs at this time. Pt will benefit from getting sock aid, toilet paper aid. Pt to go home with assist and have outpt PT. Goals Self-Feeding Goal Minimal Assistance Dressing Goal Independent,Commissary Superintendent,Sock Aid Toileting Goal Independent,Toilet Paper Aid Bathing Goal Standby Assistance,Grab Bars, Long Handled Sponge or [place] Toilet Transfer Goal Independent Shower Transfer Goal Standby Assistance Days to Meet Goals 5 Frequency of Treatment Frequency Of Treatment Once a Day Treatment Plan OT Treatment Plan ADL Training,Functional Mobility,Patient/Family Education,Discharge Planning Other Treatment Recommendations and Next Standing ADL's Treatment Focus Discharge Recommendations OT Discharge Recommendations Home with Assistance, Outpatient PT Transportation Needs at Discharge Private Vehicle
[2023-08-18] MEDS: METOPROLOL ER 25 MG TABLET PO (20:13)
[2023-08-18] MEDS: DOCUSATE 100 MG CAPSULE PO (20:14)
[2023-08-18] MEDS: FLECAINIDE 100 MG TABLET 50 MG PO (20:14)
[2023-08-19] MEDS: CEFAZOLIN 2 GM/100 ML PREMIX 100 ML IV (00:16)
[2023-08-19 00:18] VITALS: BP 112/52; PULSE 62; RESP 16; TEMP 36.3; O2SAT 94
[2023-08-19 03:45] VITALS: BP 109/50; PULSE 57; RESP 16; TEMP 36.3; O2SAT 96
[2023-08-19] MEDS: ACETAMINOPHEN 325 MG TABLET 650 MG PO ×2 (05:37→11:59)
[2023-08-19] MEDS: OXYCODONE IR 5 MG TABLET PO ×2 (05:38→10:13)
[2023-08-19 05:51] LABS: Hematocrit 37.7 % (36-46); Hemoglobin 12.7 g/dL (12.0-16.0)
--- NOTE | 2023-08-19 07:43 | PM.DS.1 ---
History of Present Illness History of Present Illness Date Patient Seen: 08/19/23 Time Patient Seen: 07:43 Chief complaint: OPB Narrative: Procedure: right total knee arthroplasty Same procedure as scheduled: Yes Indications: The patient has had progressively worsening right knee pain with radiographic changes consistent with arthritis. Non-operative management has failed and the patient has requested total knee replacement. The risks, benefits and alternatives to surgery were discussed with the patient prior to proceeding. Risks discussed included, but were not limited to, failure to relieve pain, stiffness, infection, nerve damage, deep venous thrombosis, pulmonary embolism, stroke, coma, heart attack, permanent paralysis and , as well as the potential need for eventual revision of the prosthetic. Surgeon: Jessica Zavala Ladle Builder: Eric Aguilar Click Yes if Unassisted: Yes Anesthesia Type: General and Spinal Operative Notes Findings: Severe right knee OA Closure Type: primary Specimen(s): none sent Prosthetic devices, grafts, tissues, transplants, or devices: Zavala and nephew adrianney BCS 2 size 3 femur, size 3 tibia, +9 poly, 32 x 7.5 mm patella Estimated Blood Loss (mL): 250 Blood products transfused: none Discharge Providers Provider Date of admission: 08/18/2023 Discharge Date: 08/19/23 Primary care physician: Jemima Morrell DO Consults: 08/04/23 11:01 Consult to Anesthesiology Routine Comment: Consulting Provider: Anesthesiologist Reason for consultation: Surgeon requested re: Cardiac 08/18/23 06:59 Consult to Anesthesiology Routine Comment: Consulting Provider: Anesthesiologist Reason for consultation: Regional block for post operative pain control Has provider been notified: No 08/18/23 11:35 Consult to Discharge Planning Routine Comment: Consult to Occupational Therapy Evaluate & Treat Comment: Physician Instructions: Evaluate and treat Consult to Physical Therapy Evaluate & Treat Comment: Physician Instructions: postop TKA protocol Discharge provider: Eduardo Monk PA-C Summary Hospital Course Discharge Diagnosis: Status post right knee total arthroplasty Hospital Course: Multi-modal pain control. PT. Status at Discharge Cognitive/behavioral status at discharge: oriented Functional status at discharge: uses cane/walker Overall status at discharge: patient is back to baseline Time Spent with Patient Time spent: Less than 30 minutes Exam Vital Signs (past 8 hours): - 08/19/23 00:18 08/19/23 03:45 Temperature 97.4 F L 97.4 F L Pulse Rate 62 57 L Respiratory Rate 16 16 Blood Pressure 112/52 L 109/50 L Pulse Oximetry 94 96 Oxygen Flow Rate 0 0 Oxygen Delivery Method Nasal Cannula Oxygen Flow Rate 0 Narrative Exam Narrative: Patient found lying comfortably in bed. Describes no pain over her right knee. No numbness or tingling down her right leg. Denies any nausea vomiting fever or chills. Dressing appears to be well-maintained with no signs of drainage. 1+ edema present over the anterior tibial shaft bilaterally. Able to dorsiflex and plantarflex against resistance bilaterally. Sensation intact to light touch grossly bilaterally of the lower extremities. Resp Effort & Inspection: normal respiratory effort and able to speak in complete sentences Objective Labs 08/19/23 05:38 Labs: Laboratory Results - last 24 hr 08/19/23 05:38 Hgb 12.7 Hct 37.7 PFSH Medical History (Updated 08/04/23 @ 09:24 by Digna Florentino RN) Anxiety Easy bruisability Arthritis Uses self-applied continuous glucose monitoring device PAF (paroxysmal atrial fibrillation) Hearing impaired COVID-19 (~02/2023) Lichen sclerosus Obstructive sleep apnea of adult (~02/2018) Vision disorder Hearing deficit Hay fever (~2015) Depression (~2010) Migraines (~2004) Osteoporosis (~2013) Foot pain (~2015) Chronic back pain Ankle pain (~2015) Ganglion cyst Mumps Measles (~1949) Chicken pox (~1951) Tinnitus (~1999) History of fibrocystic disease of breast Surgical History (Updated 08/04/23 @ 09:18 by Digna Florentino RN) Hx of bilateral cataract extraction Hx of thumb surgery (~2013) H/O cardiac radiofrequency ablation (~10/20/21) Anesthesia Status post bunionectomy History of tonsillectomy Family History Brother Age: 73 Heart disease Sleep apnea Father Heart disease Stroke Smoker Grandmother Heart disease Smoker Mother Heart disease Hypertension Smoker Grandfather Thrombosis Social History marital status: details: nathalia Bourgeois, lives in [place] household members: spouse lives independently: Yes caregiver/support person: No occupational status: other Smoking Status: Never smoker alcohol intake: current substance use type: does not use caffeine: No Discharge Assessment & Plan Assessment and Plan Assessment: Status post right knee total arthroplasty Plan of Treatment: Discharge home with family Patient already has oxycodone, ibuprofen and acetaminophen prescsribed from pre-op visit. She will use those as prescribed for pain relief. Patient will start aspirin 81 mg twice a day for 6 weeks for DVT prophylaxis. Patient is already has postop physical therapy scheduled and will attend for the next 6 weeks. Patient will follow-up with [facility] in 2 weeks for wound check. Discharge Plan Discharge Plan Patient Disposition: Home Provider Discharge Comment: DC pending PT approval Discharge orders & Medications Discharge Orders: Discharge (Order); Ordered 08/19/23 Ordered By: Eduardo Monk Prescriptions: Continued Eliquis 5 mg Tablet 5 mg PO BID Qty: 0 metoprolol succinate 25 mg tablet extended release 24 hr 25 mg PO BID Qty: 0 betamethasone dipropionate 0.05 % ointment See Rx Instructions .ROUTE .COMPLEX Qty: 15 0RF Dose Instruction: APPLY TOPICALLY TO THE AFFECTED AREA AT BEDTIME Rx Instructions: APPLY TOPICALLY TO THE AFFECTED AREA AT BEDTIME WEEKLY NEEDED allopurinol 100 mg tablet 100 mg PO DAILY Qty: 90 1RF (DME) Dexcom G7 Sensor Device See Rx Instructions .ROUTE .MEDSUPPLY Qty: 3 12RF Rx Instructions: USE TO MONITOR BLOOD GLUCOSE CONTINUOUSLY. REPLACE EVERY 10 DAYS. (DME) Dexcom G7 Rubber Goods Inspector Tester Misc See Rx Instructions .ROUTE .MEDSUPPLY Qty: 1 1RF Rx Instructions: USE TO MONITOR BLOOD SUGAR LEVELS CONTINUOUSLY. REPLACE EVERY 365 DAYS OR IF BROKEN flecainide 50 mg tablet 50 mg PO BID loratadine [Allerclear] 10 mg tablet 10 mg PO DAILY ascorbic acid-collagen [Collagen Skin Renewal] 1 cap PO DAILY Patient Comments: 6000mg vitamin D3-vit K1-vit MK4-MK7 50-500-1,500 mcg capsule 1 cap PO DAILY colchicine 0.6 mg tablet 0.6 mg PO DAILY PRN (Reason: Gout) sertraline 100 mg tablet 150 mg PO DAILY (DME) Resmed Aircurve 10 BIPAP Qty: 1 Dose Instruction: As directed Patient Comments: Pressure: IPAP 10 EPAP 6 DME: [employer] Rx Instructions: As directed Follow up/Referrals: Jemima Morrell DO [Primary Care Provider] - Diet/Activity/Treatments Diet: Diet as Tolerated Activity: Weight bearing as tolerated. Cold/Heat Therapy: Ice as needed for pain. Skin/Wound/Dressing Care Report to your healthcare provider any signs of infection, such as:: chills, fever, night sweats, unusual drainage and unusual redness Dressing: Remove Catrachito bandage after 3 days. Keep dressing clean and dry. If dressing becomes dirty or disrupted replace with gauze pad and paper tape. Visit Report/Discharge Packet Instructions: DI for Knee Replacement, How to Prevent Falls, DI for Prescription Opioid Use, DI for Hypotension Stand Alone Forms: Patient Portal/API, Surgery Discharge Discharge Data Primary Care Provider: Jemima Morrell Attending Provider: Jessica Zavala VTE Deep Vein Thrombosis/Pulmonary Embolism Present on Admission: No
[2023-08-19 08:51] VITALS: BP 110/56; PULSE 62; O2SAT 95
--- NOTE | 2023-08-19 09:05 | PT.IPTN ---
Current Diagnoses Unilateral primary osteoarthritis, right knee (08/18/23) Surgery Performed Operation Date: 08/18/23 07:45 Actual Procedures p Total Knee Arthroplasty - Robot(Right) - Jessica Zavala MD Physical Therapy Treatment Note M2 PT-IP Current Condition Start: 08/18/23 12:39 Freq: NEEDED Status: Active Protocol: Document 08/18/23 15:27 MB (Rec: 08/18/23 15:41 MB [id number]) Physical Therapy Current Condition Current Condition Evaluation Date 08/18/23 Treatment Diagnosis Right total knee replacement M3 PT-IP Subjective Start: 08/18/23 12:39 Freq: NEEDED Status: Active Protocol: Document 08/19/23 10:19 TS (Rec: 08/19/23 10:27 TS [id number]) Subjective Physical Therapy Visit Type Type Treatment Note Visit Start Time 09:05 Visit Stop Time 09:30 Number of COLLECTIONS MANAGER Visits 1 Physical Therapy Visit Comments Patient Comments Pt found with nursing getting up from commode, is agreeable to PT. Therapy Pain Assessment Pain When Pain Assessed During Mobility Pain Present Pain Present Pain Reported M4 PT-IP Mobility and Gait Start: 08/18/23 12:39 Freq: NEEDED Status: Active Protocol: Document 08/19/23 10:19 TS (Rec: 08/19/23 10:27 TS [id number]) PT-Transfer Assessment Sit to and From Stand Sit to and from Stand Standby Assistance Equipment Transfer Assistive Device Gait Belt,Front Wheeled Walker Orthotic/Prosthetic Devices or Brace: No Comments Mobility Comments STS from commode SBA with FWW. She ambulated to sink for brushing of teeth and combing of hair SBA with counter support. Pt ambulated ~150'SBA with FWW with step to gait, had no buckling or LOB, denied any dizziness. Pt ambulated back to room. She performed ankle pumps, quad sets, heel slides and was educated on intensity and frequency. Pt was left in chair, all needs met. Gait Assessment Gait Gait Assistance Required: Standby Assistance,1 Person Assist Distance (Feet) 150 Able to Maintain Weight Bearing Status Yes During Gait Assistive Devices Assistive Device Gait Belt,Front Wheeled Walker Orthotic/Prosthetic Devices or Brace: No Gait Deviations General Gait Pattern Antalgic,Decreased Stride Length,Decreased Feet Clearance,Flexed Trunk,Step-to Gait,Wide Based Gait Factors Limiting Gait Function Factors Limiting Gait Function Decreased Activity Tolerance, Decreased Strength,Limited Range of Motion,Pain,Poor Balance Comments Gait Comments See mobility comments PT-Balance Assessment Sitting Balance and Reactions Static Sitting Balance Ability Normal Dynamic Sitting Balance Ability Good Standing Balance and Reactions Static Standing Balance Ability Good Dynamic Standing Balance Ability Fair Device Used RW M5 PT-IP Objective Assessments Start: 08/18/23 12:39 Freq: NEEDED Status: Active Protocol: Document 08/18/23 15:27 MB (Rec: 08/18/23 15:41 MB [id number]) Orientation Orientation/Cognition Level of Alertness Alert Orientation Name,Age,Birthday,Month,Date, Year,Day of Week,Place, Situation Language Function Ability No Deficits Noted Safety Awareness Decreased Safety Awareness Memory Description No Deficits Noted Gross Range of Motion Upper Extremity ROM Impairments Defer to OT Lower Extremity ROM Assessment Right Impaired Impairments AROM right knee 5-40 in supine and then passive flexion to at least 70-80 deg sitting EOB and then pt is able to fully extend leg to keep it up when dangling sitting EOB Strength Lower Extremity Strength Assessment Right Impaired Ankle Normal Comments Strength Comments Right hip and knee not tested same day surgery, good quad engagement and control Sensation Assessment Sensation Gross Sensation WNL M6 PT-IP Treatment Start: 08/18/23 12:39 Freq: NEEDED Status: Active Protocol: Document 08/19/23 10:19 TS (Rec: 08/19/23 10:27 [id number]) Physical Therapy Treatment Exercises Exercises Ankle Pumps,Quad Sets,Heel Slides Education Education Provided Weight Bearing Status,Post-Op Packet,Safety M7 PT-IP Assessment and Plan Start: 08/18/23 12:39 Freq: NEEDED Status: Active Protocol: Document 08/19/23 10:19 TS (Rec: 08/19/23 10:27 [id number]) PT Summary Assessment and Plan Potential Rehabilitation Potential Excellent Summary Impairments Pain,ROM,Strength,Balance, Coordination,Bed Mobility, Transfers,Gait,Activity Tolerance Progress Towards Goals Progressing Toward Goals Assessment Summary Pricila is making good progress with her mobility. She is SBA for STS with FWW and SBA for gait ~150'. She demonstrates good safety awareness with her mobility and use of FWW. PT is recommending pt return home with assist and outpatient PT. Goals Bed Mobility Goal Independent Transfer Goal Independent,Front Wheeled Walker Gait Goal Independent,Front Wheel Walker Gait Distance 100 Days to Meet Goals 5 Frequency of Treatment Frequency Of Treatment Twice a Day Treatment Plan Physical Therapy Treatment Plan Bed Mobility Training,Transfer Training,Gait Training, Therapeutic Exercise,Balance Retraining,Post Op Education, Discharge Planning,Hot or Cold Pack,Neuromuscular Re-ed, Coordination Retraining,Manual Therapy Weight Bearing Status Weight Bearing Status Weight Bear as Tolerated Recommendations To Nursing Amount of Assist Needed 1 Person Assist Discharge Recommendations PT Discharge Recommendations Home with Assistance, Outpatient PT Transportation Needs at Discharge Private Vehicle
[2023-08-19] MEDS: FLECAINIDE 100 MG TABLET 50 MG PO (10:10)
[2023-08-19] MEDS: DOCUSATE 100 MG CAPSULE PO (10:12)
[2023-08-19] MEDS: allopurinoL 100 MG TABLET PO (10:13)
[2023-08-19] MEDS: SERTRALINE 50 MG TABLET 200 MG PO (10:13)
[2023-08-19] MEDS: LORATADINE 10 MG TABLET PO (10:13)
[2023-08-19] MEDS: LACTATED RINGERS 500 ML 1000 ML IV (11:20)
--- NOTE | 2023-08-19 11:57 | CM.DANOTE ---
Patient is a 77 yo female who was admitted on 08/18/23 for RTKA. Pt has [facility] for insurance and her PCP is Jemima Morrell. EMR was reviewed. Per Ortho PA, pt tolerated procedure well and pain seems controlled and tolerating diet and ambulating and medically stable to discharge home today after further PT. Per PT and ACCESS RN, pt ambulating well with FWW and recommending safe d/c home with assist and outpt PT. SW met bedside with pt, ACCESS RN, DIL and son and explained role and they confirm pt lives in [place] with her spouse and has local supportive DIL (who is an RN) and son. Pt is mostly independent at baseline and has a walker at home and no steps to enter the home. Pt confirms she has outpt PT already set up and denies any hx of HH or SNF. Pt and family deny any discharge needs and preference is to discharge home today and son and DIL confirm they will transport and assist as needed. Plan: Patient to discharge home today via son and DIL POV and outpt PT and no further SW needs at this time. ROSAMARIA Blakely Discharge Planning/Care Management CM Discharge Assessment Start: 08/19/23 11:56 Freq: Status: Active Protocol: Document 08/19/23 11:56 BF (Rec: 08/19/23 11:57 BF [id number]) Discharge Planning Assessment Assigned Motel Manager ROSAMARIA Rodriguez DPOA/Assigned Designee Name Spouse and son Contact Information [phone] Advance Directives? Yes: Healthcare Direct/ Supplement Advance Directives on File Yes History Provided By Patient,Family Member,Medical Record Has Patient been admitted in last 30 No days? Prior Living Arrangements House Household Members spouse Type of transporation used prior to Drives own vehicle admit Independent with ADL's Yes Is patient alert and oriented? Yes Needs Assistance With Home Chores / Shopping Caregiver for Another No Community Services used prior to Physical Therapy admission: DME Already Rented / Owned FWW / Walker Patient/Family Preference OP PT Therapy Barriers to Discharge No Discharge Plan Home Community Services Physical Therapy Transportation Arrangement Son and DIL bedside and confirm they will transport today Referrals Initiated None needed Whiteboard Updated in Patient Room with Yes name and ext. # of Motel Manager Review Status In Process Please Provide Date Initial DC 08/19/23 Assessment Was Performed Next Review Type Continued Stay Review Pre-Anesthesia Assessment Start: 08/04/23 08:46 Freq: Status: Complete Protocol: Document 08/04/23 08:46 [facility] (Rec: 08/04/23 09:45 CAB [id number]) Pre-Anesthesia Assessment Patient Information Reviewed Via Phone Assessment Assessment Completed With Patient Diagnostic Results BMP/CMP,CBC,EKG Primary Care Provider Jemima Morrell Seen Specialist in Last 12 Months Yes Specialist Seen Senior Application Software Engineer,Orthopedist,Sleep specialist Primary Language Yoruba Supervisor Steffen House Required No Height 152.4 cm Weight 89.358 kg Body Mass Index (BMI) 38.5 Hearing Ability Hearing Impaired,Use of Hearing Aid Visual Assist None Dentition Type Teeth, Natural Present Barriers to Learning Auditory,Memory,Visual Hx Anesthesia Reactions No Hx Family Anesthesia Reaction No Hx Malignant Hyperthermia No Hx Blood Transfusions No Anesthesia Review Requested Yes: Surgeon requested re: Cardiac. alcohol intake former Smoking Status Never smoker Substance Use Type does not use Pain Present Pain Reported Musculoskeletal Symptoms Abnormal Gait,Difficulty Walking,Joint Pain,Joint Stiffness History of Falling (Recent or History of No ) Patient is completely paralyzed or No completely immobile Mental Status Oriented to own ability Is patient on oxygen? No Does patient have BAXTER/SOB Yes: With excess walking Hx Sleep Apnea Yes: BiPAP CPAP/BIPAP use prescribed and used routinely Will Bring CPAP/BIPAP DOS Yes Currently Taking a Beta Devin Yes: Metoprolol Can You Climb a Flight of Stairs Without No SOB Hx SOB Yes: BAXTER with excess walking Anti-Coagulant Therapy Yes: Eliquis-advised to hold 2 days prior per Cardiology Has a Senior Application Software Engineer Yes: Visit 03/12/[address]. Proctor @ [facility] Hx Pacemaker/ICD No Pacemaker Rep Required? No Comment Cardiac records scanned and in surgery folder Diet Type At Home Regular,Low Carb Dysphagia No Gastrointestinal Symptoms None Chronic UTI No Bladder Pattern Frequency Urinary Catheter Present No Hx Urinary Self Catheterization No Comment Hx of spasmatic bladder Patient No Lactating No Hx Drug Resistant Organism No Presence of External or Internal Medical Yes: Bilat eye IOLs, BiPAP, Devices CGM, hearing aids, left toe Received a COVID vaccine? Yes Received all doses? Yes Marital Status Lives With spouse Current Living Arrangements House Number of Floors (Floors) Two Floors Support System Spouse Does the Patient Have Assistance After Yes Surgery Patient Discharge Plan Description Return Home Comment Pt advised 1-3 night length of stay per surgeon Feels Safe in Current Environment Yes Been Physically Hurt or Threatened By a No Person in Current Environment Do you have thoughts of harming yourself None or others? Are you currently considering suicide? No Do you have a plan to hurt yourself or No Plan others? Do You Have Any Spiritual Beliefs That No May Affect Your HC Choices? Do You Have Any Cultural Practices That No May Affect Your HC Choices? Comment Restorationism Who Can We Speak to About Patient's Care Family, friends Identifying Code for Release of Patient Declines to issue Information Health Care Proxy/Next of Kin Bk () Health Care Proxy Emergency Contact Name Gillian (daughter in-law) Bk (son) Emergency Contact Phone Number Gillian: [phone] Bk: [phone] Advance Directives? Yes: Healthcare Direct/ Supplement Advance Directives on File Yes Power of Glass Melt Operator Yes Power of Glass Melt Operator Name Bk () Power of Glass Melt Operator PAC Instructions Do not shave/clip surgical site,Durable medical equipment ,Medications to take/avoid, Nasal antibiotic,No ETOH/ petroleum product on skin DOS, NPO,Post-op transportation,Pre -surgical wash,Sensory aids, Sturdy shoes/comfortable clothes,Do not bring valuables and remove jewelry
--- NOTE | 2023-08-19 12:11 | PC.NURSE ---
Addendum entered by Raisa Logn R.N. 08/19/23 12:39: BP 105/50 after LR. pt sill asymptomatic and would like to go home. Original Note: low BP, notified provider, give LR 500 bolus for BP 95/59. provider aware beta wing was held
== END 2023-08-19 13:42 | disposition home or self-care (01) ==
LOC: OR 06:24 → AC 06:31
PROVIDERS: PCP Family Medicine; Referring Provider Orthopaedic Surgery; Visit Provider Orthopaedic Surgery
PROC: 0SRC0JZ Replacement of Right Knee Joint with Synthetic Substitute, Open Approach (ICD-10-PCS; CPT 27447; principal; 2023-08-18 07:45)
DX: M17.11 Unilateral primary osteoarthritis, right knee (principal); M25.761 Osteophyte, right knee
CPT/HCPCS: 27447; 20985; 36415; 73560; 85014; 85018; 97110; 97116; 97161; 97165; 97530; 97535; C1776; C9290; J0171; J0690; J1100; J1170; J2250; J2405; J2704; J3010

== ENCOUNTER 2023-12-13 12:55 | Emergency (ER) | payer MEDICARE, SELFPAY ==
[2023-08-18 11:37] VITALS: BMI 38.5
[2023-12-13] VITALS (9 sets, daily range): BP systolic 142–172; BP diastolic 66–81; PULSE 58–77; RESP 15–24; TEMP 36.6; O2SAT 95–99; BMI 32.1
--- NOTE | 2023-12-13 13:48 | DI.CT.S_ITS ---
PROCEDURE: CT HEAD/BRAIN WO CON INDICATIONS: fall on thinners TECHNIQUE: Noncontrast 4.5 mm thick angled axial sections acquired from the foramen magnum to the vertex, with coronal and sagittal reformats. For radiation dose reduction, the following was used: automated exposure control, adjustment of mA and/or kV according to patient size. COMPARISON: [facility], CT, CT HEAD/BRAIN WO CON, 12/10/2018, 17:39. FINDINGS: Image quality: Diagnostic. CSF spaces: Basal cisterns are patent. No extra-axial fluid collections. The ventricles are symmetric in size and shape. Brain: No intracranial bleeds or masses. There is cerebral volume loss for age, with resultant ventricular and sulcal prominence. There are periventricular and deep white matter chronic small vessel ischemic changes. There is intracranial internal carotid artery atherosclerosis. Skull and face: Calvarium and visualized facial bones appear intact, without suspicious lesions. Large anterior scalp contusion. Sinuses: Visualized sinuses and mastoids are clear. IMPRESSION: No acute intracranial pathology. Large anterior scalp contusion without underlying fracture. Dictated by: Oleg Monroe M.D. on 12/13/2023 at 14:55 Approved by: Oleg Monroe M.D. on 12/13/2023 at 14:56
--- NOTE | 2023-12-13 13:49 | DI.CT.S_ITS ---
PROCEDURE: CT CERVICAL SPINE WO CON INDICATIONS: fall on thinners TECHNIQUE: Noncontrast 3 mm thick sections acquired from the skull base to the T4 level. Sagittal and coronal reformats were then constructed. For radiation dose reduction, the following was used: automated exposure control, adjustment of mA and/or kV according to patient size. COMPARISON: None. FINDINGS: Image quality: Excellent. Bones: No fractures or dislocations. Visualized superior ribs are intact. Severe disc height loss at C3-4, C5-6. Moderate disc height loss at remaining levels. Diffuse facet arthrosis, most prominent on the left side. Soft tissues: Prevertebral soft tissues are normal in thickness. No paravertebral hematomas. No apical pneumothoraces. IMPRESSION: No displaced fracture or traumatic subluxation. Dictated by: Oleg Monroe M.D. on 12/13/2023 at 14:56 Approved by: Oleg Monroe M.D. on 12/13/2023 at 14:58
[2023-12-13] MEDS: OXYCODONE/ACETAMINOPHEN 5/325 TABLET 1 TAB PO (17:58)
[2023-12-13] MEDS: LIDOCAINE 1% W/EPI 5 ML INJ (18:30)
--- NOTE | 2023-12-13 18:34 | ED_ITS ---
HPI - Head Injury General Chief complaint: Head Injury Stated complaint: fell/head inj/lac Time Seen by Provider: 12/13/23 17:52 Source: patient Mode of arrival: Ambulatory History of Present Illness HPI Narrative: 78-year-old female with history of atrial fibrillation on Eliquis presents for evaluation of forehead bleeding and head injury. Patient states that she was gardening outside and tripped over her wheelbarrow, striking the front of her head. Did not lose consciousness. Has large bleeding hematoma on front of forehead Related Data Home Medications Medication Instructions Recorded Confirmed apixaban 5 mg tablet (Eliquis) 5 mg PO BID ##0 10/26/17 08/17/23 Resmed Aircurve 10 BIPAP #1 ea 12/25/18 08/18/23 metoprolol succinate 25 mg 25 mg PO BID #0 tabs 11/19/21 08/18/23 tablet,extended release 24 hr vit D3 50 mcg-vitamin K1 500 1 cap PO DAILY Year around 01/03/23 08/18/23 mcg-MK4 1,500 mcg-MK7 180 mcg capsule ascorbic acid-collagen [Collagen 1 cap PO DAILY 06/08/23 08/18/23 Skin Renewal] flecainide 50 mg tablet 50 mg PO BID 06/08/23 08/18/23 loratadine 10 mg tablet 10 mg PO DAILY 06/08/23 08/18/23 (Allerclear) colchicine 0.6 mg tablet 0.6 mg PO DAILY PRN Gout 08/04/23 08/15/23 sertraline 100 mg tablet 150 mg PO DAILY 08/18/23 08/18/23 Previous Rx's Medication Instructions Recorded blood-glucose meter,continuous #1 ea 03/08/23 (Dexcom G7 [employer] Data Entry) blood-glucose sensor (Dexcom G7 #3 ea 03/08/23 Sensor device) betamethasone dipropionate 0.05 % See Rx Instructions .Route 05/02/23 topical ointment .COMPLEX #15 grams allopurinol 100 mg tablet 100 mg PO DAILY #90 tabs 07/05/23 Allergies Allergy/AdvReac Type Severity Reaction Status Date / Time trimethoprim Allergy Severe hives, Verified 08/18/23 07:01 headache, nausea adhesive tape Allergy Irritable Verified 08/18/23 07:01 to skin Sulfa (Sulfonamide Allergy hives, Verified 08/18/23 07:01 Antibiotics) nausea, headache ciprofloxacin AdvReac Severe Made me Verified 08/18/23 07:01 feel crazy with dizziness procaine [From NOVOCAIN] AdvReac Unknown HEART Verified 08/18/23 07:01 RACING NSAIDS (Non-Steroidal AdvReac Pt on Verified 08/18/23 07:01 Anti-Inflamma anticoagulants Patient History Medical History Anxiety Easy bruisability Arthritis Uses self-applied continuous glucose monitoring device PAF (paroxysmal atrial fibrillation) Hearing impaired COVID-19 (~02/2023) Lichen sclerosus Obstructive sleep apnea of adult (~02/2018) Vision disorder Hearing deficit Hay fever (~2015) Depression (~2010) Migraines (~2004) Osteoporosis (~2013) Foot pain (~2015) Chronic back pain Ankle pain (~2015) Ganglion cyst Mumps Measles (~1949) Chicken pox (~1951) Tinnitus (~1999) History of fibrocystic disease of breast Surgical History Hx of bilateral cataract extraction Hx of thumb surgery (~2013) H/O cardiac radiofrequency ablation (~10/20/21) Anesthesia Status post bunionectomy History of tonsillectomy Family History Brother Age: 74 Heart disease Sleep apnea Father Heart disease Stroke Smoker Grandmother Heart disease Smoker Mother Heart disease Hypertension Smoker Grandfather Thrombosis Social History marital status: details: nathalia Bourgeois, lives in [place] household members: spouse lives independently: Yes caregiver/support person: No occupational status: other Smoking Status: Never smoker alcohol intake: current substance use type: does not use caffeine: No Smoking Status: Never smoker alcohol intake frequency: holidays/special occasions only Substance Use Type: does not use Exam Initial Vital Signs Initial Vital Signs: Vital Signs Temperature 97.9 F 12/13/23 13:45 Pulse Rate 77 12/13/23 13:45 Respiratory Rate 16 12/13/23 13:45 Blood Pressure 154/81 H 12/13/23 13:45 Pulse Oximetry 99 12/13/23 13:45 Oxygen Delivery Method Room Air 12/13/23 13:45 Const: Awake, alert, no acute distress HEENT: PERRLA, EOMI Skin: Warm, Dry, large forehead hematoma with continued oozing of blood. No obvious laceration Neuro: AO x3, CN II-XII grossly intact, moves all extremities Procedures Laceration Repair Laceration 1: Site: face Size (cm): 0.1 Local Anesthetic: lidocaine 1% and with epi Skin layer closed with: nylon Skin layer suture size: 6-0 Number of sutures: 1 Technique: other (purse-string) Course Orders Ordered: Discontinued Medications Lidocaine/Epinephrine (Lidocaine 1% W/Epi) 5 ml INJ NOW ONE Stop: 12/13/23 18:16 Last Admin: 12/13/23 18:30 Dose: 5 ml Documented By: EHSAN Oxycodone/Acetaminophen (Oxycodone/Acetaminophen 5/325 Tablet) 1 tab PO NOW ONE Stop: 12/13/23 17:55 Last Admin: 12/13/23 17:58 Dose: 1 tab Documented By: MARIANNE Vital Signs Vital signs: Vital Signs - 8 hr 12/13/23 13:45 12/13/23 16:30 12/13/23 16:32 Temperature 97.9 F Pulse Rate 77 62 62 Respiratory Rate 16 18 Blood Pressure 154/81 H 172/70 H Pulse Oximetry 99 96 96 Oxygen Delivery Method Room Air Room Air 12/13/23 16:34 12/13/23 16:34 12/13/23 17:00 Temperature Pulse Rate 58 L 59 L Respiratory Rate 15 Blood Pressure 160/70 H Pulse Oximetry 97 96 Oxygen Delivery Method Room Air 12/13/23 17:00 12/13/23 18:30 Temperature Pulse Rate 61 Respiratory Rate 22 Blood Pressure 164/74 H Pulse Oximetry 95 Oxygen Delivery Method Room Air MDM - Head Injury Differential Diagnosis Differential diagnosis: Likely concussion without loss of consciousness, postconcussion syndrome and concussion with loss of consciousness Imaging Data CT scan - head: Radiologist's Impression: PROCEDURE: CT HEAD/BRAIN WO CON INDICATIONS: fall on thinners TECHNIQUE: Noncontrast 4.5 mm thick angled axial sections acquired from the foramen magnum to the vertex, with coronal and sagittal reformats. For radiation dose reduction, the following was used: automated exposure control, adjustment of mA and/or kV according to patient size. COMPARISON: [facility], CT, CT HEAD/BRAIN WO CON, 12/10/2018, 17:39. FINDINGS: Image quality: Diagnostic. CSF spaces: Basal cisterns are patent. No extra-axial fluid collections. The ventricles are symmetric in size and shape. Brain: No intracranial bleeds or masses. There is cerebral volume loss for age, with resultant ventricular and sulcal prominence. There are periventricular and deep white matter chronic small vessel ischemic changes. There is intracranial internal carotid artery atherosclerosis. Skull and face: Calvarium and visualized facial bones appear intact, without suspicious lesions. Large anterior scalp contusion. Sinuses: Visualized sinuses and mastoids are clear. IMPRESSION: No acute intracranial pathology. Large anterior scalp contusion without underlying fracture. Dictated by: Oleg Monroe M.D. on 12/13/2023 at 14:55 Approved by: Oleg Monroe M.D. on 12/13/2023 at 14:56 CT - cervical spine: Radiologist's Impression: PROCEDURE: CT CERVICAL SPINE WO CON INDICATIONS: fall on thinners TECHNIQUE: Noncontrast 3 mm thick sections acquired from the skull base to the T4 level. Sagittal and coronal reformats were then constructed. For radiation dose reduction, the following was used: automated exposure control, adjustment of mA and/or kV according to patient size. COMPARISON: None. FINDINGS: Image quality: Excellent. Bones: No fractures or dislocations. Visualized superior ribs are intact. Severe disc height loss at C3-4, C5-6. Moderate disc height loss at remaining levels. Diffuse facet arthrosis, most prominent on the left side. Soft tissues: Prevertebral soft tissues are normal in thickness. No paravertebral hematomas. No apical pneumothoraces. IMPRESSION: No displaced fracture or traumatic subluxation. Dictated by: Oleg Monroe M.D. on 12/13/2023 at 14:56 Approved by: Oleg Monroe M.D. on 12/13/2023 at 14:58 [facility] Narrative Medical decision making narrative: Ground level fall on Eliquis. Cc negative for acute findings. Patient has punctate laceration that has continuous oozing of blood. Unable to stop bleeding with pressure or infiltration of lidocaine. Single pursestring suture placed in center forehead and SurgiSeal applied with resolution of bleeding. Discharge Plan Departure Patient Disposition: Home Clinical Impression: Scalp hematoma Instructions: DI for Closed Head Injury Activity Restrictions/Additional Instructions: Single suture needs to be removed in 5-7 days. Apply ice to swelling. Do not get the surgicel or suture wet for the next 24 hours. Prescriptions: No Action Eliquis 5 mg Tablet 5 mg PO BID Qty: 0 metoprolol succinate 25 mg tablet extended release 24 hr 25 mg PO BID Qty: 0 betamethasone dipropionate 0.05 % ointment See Rx Instructions .ROUTE .COMPLEX Qty: 15 0RF Dose Instruction: APPLY TOPICALLY TO THE AFFECTED AREA AT BEDTIME Rx Instructions: APPLY TOPICALLY TO THE AFFECTED AREA AT BEDTIME WEEKLY NEEDED allopurinol 100 mg tablet 100 mg PO DAILY Qty: 90 1RF (DME) Dexcom G7 Sensor Device See Rx Instructions .ROUTE .MEDSUPPLY Qty: 3 12RF Rx Instructions: USE TO MONITOR BLOOD GLUCOSE CONTINUOUSLY. REPLACE EVERY 10 DAYS. (DME) Dexcom G7 [employer]el[employer] Data Entry Misc See Rx Instructions .ROUTE .MEDSUPPLY Qty: 1 1RF Rx Instructions: USE TO MONITOR BLOOD SUGAR LEVELS CONTINUOUSLY. REPLACE EVERY 365 DAYS OR IF BROKEN flecainide 50 mg tablet 50 mg PO BID loratadine [Allerclear] 10 mg tablet 10 mg PO DAILY ascorbic acid-collagen [Collagen Skin Renewal] 1 cap PO DAILY Patient Comments: 6000mg vitamin D3-vit K1-vit MK4-MK7 50-500-1,500 mcg capsule 1 cap PO DAILY colchicine 0.6 mg tablet 0.6 mg PO DAILY PRN (Reason: Gout) sertraline 100 mg tablet 150 mg PO DAILY (DME) Resmed Aircurve 10 BIPAP Qty: 1 Dose Instruction: As directed Patient Comments: Pressure: IPAP 10 EPAP 6 DME: [employer] Rx Instructions: As directed Referrals: Jemima Morrell DO [Primary Care Provider] - Stand Alone Forms: Patient Portal/API
== END 2023-12-13 19:53 | disposition home or self-care (01) ==
PROVIDERS: Emergency Provider Emergency Medicine; PCP Family Medicine
DX: S00.03XA Contusion of scalp, initial encounter (principal); S01.81XA Laceration without foreign body of other part of head, initial encounter; W01.198A Fall on same level from slipping, tripping and stumbling with subsequent striking against other object, initial encounter; Z79.01 Long term (current) use of anticoagulants
CPT/HCPCS: 12011; 70450; 72125; 99283; 99284

== ENCOUNTER → 2024-05-12 13:45 | Outpatient (CLI) | payer MEDICARE, SELFPAY ==
[2024-05-10 16:58] VITALS: BMI 38.5
--- NOTE | 2024-05-12 13:47 | DI.RAD.S_ITS ---
PROCEDURE: XR CHEST 2V INDICATIONS: r/o PNA, fatigue, cough TECHNIQUE: 2 views of the chest were acquired. COMPARISON: [facility], CR, XR CHEST 2V, 05/21/2019, 14:15. FINDINGS: Surgical changes and devices: None. Lungs and pleura: No consolidation identified. No pleural effusions or pneumothorax. Mediastinum: Mediastinal contours are normal. Heart size is normal. Bones and chest wall: No suspicious bony abnormalities. Soft tissues appear unremarkable. IMPRESSION: No acute cardiopulmonary abnormality is seen. Dictated by: Lambert Bolton M.D. on 05/12/2024 at 20:09 Approved by: Lambert Bolton M.D. on 05/12/2024 at 20:10
== END ==
LOC: RAD 13:46
PROVIDERS: PCP Family Medicine; Referring Provider Nurse Practitioner Family; Visit Provider Nurse Practitioner Family
DX: R05.9 Cough, unspecified (principal)
CPT/HCPCS: 71046

== ENCOUNTER → 2024-10-18 12:21 | Outpatient (CLI) | payer MEDICARE, SELFPAY ==
[2024-05-10 16:58] VITALS: BMI 38.5
[2024-10-18 13:37] LABS: Uric Acid 5.4 mg/dL (2.5-6.2)
[2024-10-18 13:41] LABS: Alanine Aminotransferase 15 IU/L (<35); Albumin 4.1 g/dL (3.5-5.0); Albumin Globulin Ratio 1.6 (1.0-2.8); Alkaline Phosphatase 67 U/L (38-126); Aspartate Aminotransferase 22 IU/L (14-36); BUN Creatinine Ratio 21.6 (6-22); Bilirubin Total 0.6 mg/dL (0.2-1.3); Blood Urea Nitrogen 16 mg/dL (7-17); Calcium 9.6 mg/dL (8.4-10.2); Carbon Dioxide 23 mmol/L (22-32); Chloride 104 mmol/L (98-107); Estimated Glomerular Filt Rate > 60 mL/min (>60); Globulin 2.5 g/dL (1.7-4.1); Glucose 100 mg/dL (70-99); HEMOLYSIS < 15 (0-50); Potassium 4.5 mmol/L (3.4-5.1); Sodium 137 mmol/L (137-145); Total Protein 6.6 g/dL (6.3-8.2)
== END ==
PROVIDERS: PCP Family Medicine; Referring Provider Family Medicine; Visit Provider Internal Medicine Cardiovascular Disease
DX: I48.0 Paroxysmal atrial fibrillation (principal); M10.9 Gout, unspecified
CPT/HCPCS: 36415; 80053; 84550

== ENCOUNTER → 2024-12-25 11:00 | Outpatient (CLI) | payer MEDICARE, SELFPAY ==
[2024-05-10 16:58] VITALS: BMI 38.5
== END ==
PROVIDERS: PCP Family Medicine; Visit Provider Family Medicine
DX: R39.9 Unspecified symptoms and signs involving the genitourinary system (principal)
CPT/HCPCS: 87077; 87086; 87186

== ENCOUNTER → 2025-05-11 08:58 | Outpatient (CLI) | payer MEDICARE, SELFPAY ==
[2024-05-10 16:58] VITALS: BMI 38.5
[2025-05-11 10:31] LABS: Influenza A - CEPHEID Flu A NEGATIVE (NEGATIVE); Influenza B - CEPHEID Flu B NEGATIVE (NEGATIVE)
[2025-05-11 10:34] LABS: COVID-19 CEPHEID 4-PLEX PCR Negative (Negative)
== END ==
PROVIDERS: PCP Family Medicine; Visit Provider Chiropractor
DX: R05.1 Acute cough (principal)
CPT/HCPCS: 87637

== ENCOUNTER → 2025-05-11 09:25 | Outpatient (CLI) | payer MEDICARE, SELFPAY ==
[2024-05-10 16:58] VITALS: BMI 38.5
--- NOTE | 2025-05-11 09:26 | DI.RAD.S_ITS ---
PROCEDURE: XR CHEST 2V INDICATIONS: RLL crackles TECHNIQUE: 2 views of the chest were acquired. COMPARISON: [facility], , XR CHEST 2V, 05/21/2019, 14:15. [facility], CR, XR CHEST 2V, 05/12/2024, 14:02. FINDINGS: Surgical changes and devices: None. Lungs and pleura: Lungs are clear. No pleural effusions or pneumothorax. The lungs are hyperexpanded, with flattening of the hemidiaphragms seen. Mediastinum: The cardiac contours are within normal limits. The aorta demonstrates calcification and tortuosity. Bones and chest wall: Age-appropriate bony degenerative changes are seen. Mac row in dextroconvex No suspicious bony abnormalities. Soft tissues appear unremarkable. IMPRESSION: Hyperexpanded lungs, without an acute cardiopulmonary process identified. Dictated by: Herrera Willis M.D. on 05/11/2025 at 9:13 Approved by: Herrera Willis M.D. on 05/11/2025 at 9:13
== END ==
LOC: RAD 09:26
PROVIDERS: PCP Family Medicine; Referring Provider Chiropractor; Visit Provider Chiropractor
DX: R05.1 Acute cough (principal)
CPT/HCPCS: 71046; 87637